=== PATIENT | female | born 1950 | race Hispanic/Latino ===

== ENCOUNTER 2024-04-22 13:07 | Inpatient (IN) | payer MEDICARE ==
[~2024-04-22] VITALS: Ht 157.5 cm; Wt 60.8 kg
[2024-04-22] MEDS ORDERED: PHARMACY COMMUNICATION MISC SCH (14:00)
[2024-04-22] MEDS ORDERED: VANCOMYCIN PROTOCOL PER PHARMACY IV SCH (14:00)
--- NOTE | 2024-04-22 14:26 | EKG ---
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
[2024-04-22] MEDS: VANCOMYCIN 1.5 GM/250 ML BAG 250 ML IV ONE (15:00)
--- NOTE | 2024-04-22 15:02 | HMCIMG ---
LEFT FOOT RADIOGRAPHS - 3 VIEWS INDICATION: Infected left great toe COMPARISON: None FINDINGS: AP, lateral, and oblique views. No fracture or subluxation identified. No evidence for periosteal reaction, cortical erosive changes, or any abnormal subperiosteal bone resorption. Midfoot alignment is well maintained. Arterial wall calcific plaque noted. Subcentimeter plantar calcaneal spur. IMPRESSION: No evidence for fracture or subluxation.
--- NOTE | 2024-04-22 15:02 | HMCIMG ---
PORTABLE CHEST RADIOGRAPH INDICATION: SOB COMPARISON: None FINDINGS: Shallow inspiration. Heart size is normal. Mild calcific plaque is present along the aortic arch long. Dense mitral annular calcific plaque. The pulmonary vascularity and olamide appear normal. No abnormal pulmonary parenchymal opacity or consolidation identified. No significant pleural effusion noted. No pneumothorax detected. IMPRESSION: Shallow inspiration. No radiographic evidence for any acute cardiopulmonary process.
--- NOTE | 2024-04-22 15:06 | HMCIMG ---
ULTRASOUND ARTERIAL DUPLEX LOWER EXTREMITY, BILATERAL INDICATION: Left leg pain TECHNIQUE: Routine grayscale, color Doppler, and power Doppler ultrasound of the bilateral lower extremity arteries were obtained. COMPARISON: None FINDINGS: Velocities in cm/sec. RIGHT: SCIENTIFIC GLASS BLOWER: 246 SFA: Prox 98, Mid 139, Distal 87 Popliteal: 42 proximally and 44 distally Anterior Tibial: 40 distally Posterior Tibial: 51 Dorsalis Pedis: 46 Triphasic flow along the right lower extremity until system except for monophasic along the right posterior tibial, distal right anterior tibial, and right dorsalis pedis artery. LEFT: SCIENTIFIC GLASS BLOWER: 114 SFA: Prox 70, Mid 12, Distal 31 Popliteal: 21 proximally and 27 distally Anterior Tibial: 32 distally Posterior Tibial: 17 Dorsalis Pedis: 38 Monophasic flow along the left lower extremity arterial system except for biphasic along the left common femoral artery. Multilevel mild atherosclerotic disease demonstrated along both lower extremities. 2.4 x 0.8 x 2.2 cm simple posterior right knee gastrocnemius semimembranosus bursal fluid collection demonstrated. IMPRESSION: Findings suggesting 50-80% stenosis involving the right common femoral artery. Monophasic flow along most of the left lower extremity arterial system except for the left common femoral artery, and monophasic flow along the right posterior tibial, anterior tibial, and dorsalis pedis arteries. Parameters as reported.
--- NOTE | 2024-04-22 15:11 | HP ---
PAT HISTORY AND PHYSICAL Date of Service: Apr 22, 2024 Time of Service: 15:11 HISTORY OF PRESENT ILLNESS: Date of service: 04/22/2024 73-year-old female with past medical history of hypertension, hyperlipidemia, diabetes mellitus type 2, history of seizures, history of PVD who presented to the hospital secondary to lower extremity pain. Patient was seen in Dr. Moore clinic today for evaluation of ingrown toenail to the left foot. Patient states she has previously seen Dr. Ashford and was given oral antibiotics. She has noted increasing pain in the left lower extremity which she describes as crampy in nature. Pain is also present in the right lower extremity pain is exacerbated with walking. Patient has had a history of PVD in the past and had undergone a previous intervention in the [place]. She is noted to be on Xarelto 2.5 mg b.i.d. at home. Per daughter patient had a fall around 5-6 days ago. She fell on her hip. Denied any head trauma, headache, neck pain. She complains of mild pain in the right hip. She has been able to ambulate after fall. The patient was sent as a direct admission from Dr. Solitario's clinic for further evaluation Labs in the ED were notable for white count of 8.7, hemoglobin was 10.2, platelet count was 203 K, sodium was 136, potassium was 4.6, creatinine was 1.5, AST is 119, ALT is 43, CK was 5834 Patient underwent chest x-ray which was noted to be negative, patient underwent a foot x-ray which was negative. Patient underwent arterial ultrasound which showed 50-80% stenosis involving the right common femoral artery. Monophasic flow was noted along most of the left lower extremity except for left common femoral and monophasic flow was noted in the right posterior tibial, anterior tibial and dorsalis pedis. REVIEW OF SYSTEMS CONSTITUTIONAL: Denies fevers, chills, or night sweats. No unintentional weight loss reported. NEUROLOGICAL: Denies headache, amaurosis fugax, motor weakness, sensory deficit, vertigo/spinning sensation, gait abnormalities, or tremors. ENT: No hearing loss, otalgia, otorrhea, rhinitis, rhinorrhea, hoarseness, or sore throat. CARDIOVASCULAR: Denies any exertional angina, dyspnea on exertion, orthopnea, paroxysmal nocturnal dyspnea, palpitations, life-threatening arrhythmias, claudication. PULMONARY: Denies any shortness of breath, cough, phlegm/sputum, hemoptysis, p leuritic chest pain. GASTROINTESTINAL: Denies any type of dysphagia to either liquids or solids. Denies nausea, vomiting, pyrosis, early satiety, abdominal pain, diarrhea, constipation, or changes in stool consistency or caliber. Denies coffee-ground emesis, hematemesis, hematochezia, or melanotic stools. GENITOURINARY: Denies frequency, urgency, nocturia, hematuria or incontinence (Storage/Irritative symptoms.) Low urinary stream, straining to void, urinary intermittency or hesitancy, splitting of the voiding stream, terminal dribbling. ENDOCRINOLOGIC: Denies polyuria, polydipsia, polyphagia or heat/cold intolerances. HEMATOLOGIC: Denies thrombophilia/previous clots, or coagulopathy/bleeding disorders. ONCOLOGIC: Denies personal history of malignancy. DERMATOLOGIC: Denies rashes or pruritus. PSYCHIATRIC: Denies any suicidal or homicidal ideation. Denies hallucinations. Musculoskeletal: Pain in the left lower extremity and right lower extremity PAST MEDICAL HISTORY: Hypertension, hyperlipidemia, diabetes mellitus type 2, history of seizures, history of PVD PAST SURGICAL HISTORY: History of peripheral intervention to the lower extremity with stent placement PAST SOCIAL HISTORY: Denied any smoking, alcohol, drug use FAMILY HISTORY: Denied any pertinent family history Coded Allergies: fish oil (Unverified Allergy, Unknown, 04/22/24) kathleen (Unverified Allergy, Unknown, 04/22/24) PHYSICAL EXAM GENERAL APPEARANCE: The patient is awake, alert, and oriented, in no acute cardiopulmonary distress. NEUROLOGICAL: Cranial nerves II-XII grossly intact. Motor is 5/5 in bilateral upper and lower extremities proximal to distal. No sensory deficits. HEENT: Face is symmetric. Pupils are equal and reactive. Extraocular movements are intact. NECK: Supple. No JVD. No thyromegaly. No submental, submandibular, pre- /postauricular, occipital or supraclavicular lymphadenopathy. CHEST: Normal chest expansion. No Telemetry. LUNGS: Absence of any rales, rhonchi or any wheezing. CARDIOVASCULAR: Regular. S1 and S2 normal. No appreciable rubs, murmurs or gallops. ABDOMEN: Soft, nontender, and nondistended. There is no rebound, voluntary guarding, or rigidity. : Deferred. No [place]. EXTREMITIES: She has a erythema noted in the big hallux of the left foot. She has possible paronychia. No drainage noted. There is mild tenderness to palpation on the lateral aspect of the nail bed. Pulses faintly palpable. Extremities warm to touch bilaterally. SKIN: No skin breakdown. Vital Sign (Last 24 Hours) 04/22/24 14:28 Temp 97.5 Pulse 61 Resp 16 B/P (MAP) 157/66 Pulse Ox 99 O2 Delivery Room Air O2 Flow Rate 0 LABS: Current Medications Medications (Trade) Dose Ordered Sig/Candace Route PRN Reason Start Time Stop Time Status Last Admin Dose Admin Cefepime HCl (MAXipime 1 GM vial) 1 gm Q8H IVPB 04/22/24 15:30 05/02/24 15:29 UNV Pharmacy Profile Note (Pharmacy Communication) 1 each ONCE MISC 04/22/24 14:00 04/22/24 14:44 DC Sodium Chloride 1,000 ml @ 75 mls/hr [id number] IV 04/22/24 15:30 05/22/24 15:29 UNV Vancomycin HCl (Vancomycin Protocol) 1 each AD IV 04/22/24 14:00 05/06/24 13:59 UNV DIAGNOSTICS / RADIOLOGY: [ ] ASSESSMENT: Left big toe cellulitis with associated paronychia Suspected left lower extremity foot ischemia with abnormal arterial ultrasound of the lower extremity POA Rhabdomyolysis POA Acute kidney injury Hypertension Hyperlipidemia Diabetes mellitus type 2 History of seizures PLAN: - patient to be admitted to medical-surgical unit with telemetry -in reference to left foot cellulitis. Patient will continue on vancomycin and cefepime. Closely monitor renal function. If worsening we will consider stopping vancomycin. The patient to be started on NS for hydration. -in reference to rhabdomyolysis. We will start patient on NS for hydration -reference to acute kidney injury. Obtain a urine sodium, urine creatinine. Obtain a renal ultrasound - in reference to PVD. We will request consultation with Cardiology. -obtain home medications which will be reconciled once available - further orders per hospitalization course. Advanced Care Planning Which of the following were discussed: Hospice care: Yes __ No _x_ Therapeutic options: Yes __ No __ Advance directives: Yes __ No __ Other discussions: Discussed with who?: patient and daughter (Patient, family or surrogates) Voluntary nature of this service was explained to the patient? Yes _x_ No __ Amount of time spent: 25 minutes STEVEN Ramirez MD, MD Apr 22, 2024 15:11
[2024-04-22] MEDS: 0.9%NACL 1000ML 1,000 ML IV SCH (15:30)
[2024-04-22 15:32] LABS: CREATININE 1.5 mg/dL (0.5-1.0); POTASSIUM 4.6 mmol/L (3.5-5.1)
[2024-04-22 15:38] LABS: BASOPHILS # (AUTO) 0.04 K/uL (0.00-0.20); BASOPHILS % (AUTO) 0.5 % (0.0-5.0); EOSINOPHILS # (AUTO) 0.06 K/uL (0.00-0.70); EOSINOPHILS % (AUTO) 0.7 % (0.0-8.0); HEMATOCRIT 31.4 % (36-48); IMMATURE GRANULOCYTE ABSOLUTE 0.03 K/uL (0-1); LYMPHOCYTES # (AUTO) 1.3 K/uL (1.0-4.8); MEAN CORPUSCULAR HEMOGLOBIN 29.8 pg (27.0-33.0); MEAN CORPUSCULAR HGB CONC 32.5 g/dL (32.0-36.0); MEAN CORPUSCULAR VOLUME 91.8 fL (79-99); MONOCYTES # (AUTO) 0.7 K/uL (0.1-1.0); MONOCYTES % (AUTO) 7.8 % (3.0-13.0); NEUTROPHILS # (AUTO) 6.6 K/uL (1.8-7.7); NEUTROPHILS % (AUTO) 75.7 % (40.0-77.0); PLATELET COUNT (AUTO) 203 K/uL (130-400); RED BLOOD CELL COUNT(AUTO) 3.42 MIL/uL (4.00-5.50); RED CELL DISTRIBUTION WIDTH 15.2 % (11.0-15.5); WHITE BLOOD COUNT (AUTO) 8.7 K/uL (4.8-10.8)
[2024-04-22 15:55] LABS: ALBUMIN 4.2 g/dL (3.5-5.0); BILIRUBIN,TOTAL 0.7 mg/dL (0.2-1.0)
--- NOTE | 2024-04-22 16:00 | HMCIMG ---
BILATERAL HIP, INCLUDING AP PELVIS, RADIOGRAPHS - 3 VIEWS INDICATION: Pain COMPARISON: None FINDINGS: Abduction view of the left and right hip and single AP view of the pelvis. No acute fracture or subluxation identified. Both femoral heads are well formed without osteochondral erosion or radiographic evidence for avascular necrosis. Extensive calcific plaque along the inflow and outflow arterial long bilaterally. IMPRESSION: No evidence for fracture or dislocation.
[2024-04-22 16:48] LABS: INR 1.03 (0.85-1.15); PROTHROMBIN TIME 10.9 SEC (9.6-11.6)
--- NOTE | 2024-04-22 17:29 | NUR ---
TRANSFER OF CARE HANDED OVER AT 171. PT MOVED FROM FAST TRACK AREA TO [facility], TO BEGIN TREATMENT.
[2024-04-22] MEDS: ceFEPime HCL 1 GM VIAL IVPB SCH (17:54)
--- NOTE | 2024-04-22 17:55 | HMCIMG ---
ULTRASOUND RENAL COMPLETE INDICATION: Assess kidney and bladder; No relevant information related to this study was provided in patient's history by the ordering service. TECHNIQUE: Routine ultrasound of the kidneys and urinary bladder with grayscale and color Doppler imaging was performed in real-time, and subsequently made available for review. COMPARISON: No prior studies available for comparison. FINDINGS: The slightly echogenic right kidney measures 9.0 x 5.1 x 3.7 cm No abnormal mass demonstrated. No evidence for hydronephrosis or shadowing stone. The slightly echogenic left kidney measures 8.5 x 4.7 x 3.4 cm. No abnormal mass demonstrated. No evidence for hydronephrosis or shadowing stone. Urinary bladder appears normal. IMPRESSION: No relevant information related to this study was provided in patient's history by the ordering service. Mild bilateral renal parenchymal abnormality can be artifactual or related to mild tubular necrosis or interstitial nephritis, but for which correlation with urine studies is recommended. No evidence for nephrolithiasis or hydronephrosis.
[2024-04-22] MEDS ORDERED: CILO50TA2 PO (18:11)
[2024-04-22] MEDS ORDERED: LEVE500T19 PO (18:11)
[2024-04-22] MEDS ORDERED: ATOR40TA71 PO (18:11)
[2024-04-22] MEDS ORDERED: RIVA10TA PO (18:11)
[2024-04-22] MEDS ORDERED: METF-444 PO (18:11)
[2024-04-22] MEDS ORDERED: LOSA50TA64 PO (18:11)
--- NOTE | 2024-04-22 18:41 | NUR ---
CALLED PHARMACY, VANCOMYCIN MEDICATION JUST ARRIVED NOW TO ED DEPT.
[2024-04-22] MEDS: VANCOMYCIN 1.5 GM/250 ML BAG 250 ML IV SCH (18:42)
[2024-04-22 19:15] LABS: CREATININE,URINE RANDOM 43.14 mg/dL (30-135)
[2024-04-22 20:00] VITALS: BP 137/49; PULSE 73; RESP 16; TEMP 97.3
[2024-04-22] MEDS: INSULIN humuLIN R 100 UNIT/ML 3ML SQ SCH (21:00)
[2024-04-22] MEDS: CILOstazol 100 MG TAB PO SCH (21:51)
[2024-04-22] MEDS: leveTIRACEtam 500 MG TABLET PO SCH (21:52)
[2024-04-22] MEDS: RIVAROXABAN 10 MG TABLET PO SCH (21:52)
[2024-04-22 22:00] VITALS: O2SAT 100
[2024-04-22] MEDS: acetaMINOPHEN 500 MG TABLET PO PRN (22:06)
[2024-04-23] VITALS (8 sets, daily range): BP systolic 96–149; BP diastolic 47–62; PULSE 60–77; RESP 16–22; TEMP 97.6–98.6; O2SAT 99–100
--- NOTE | 2024-04-23 07:56 | NUR ---
PT IN MRI
--- NOTE | 2024-04-23 08:13 | PN ---
[facility] PROGRESS NOTE Date of Service: Apr 23, 2024 Time of Service: 08:04 SUBJECTIVE: [ ] This is a 73-year-old female that was admitted on 04/22/2024 with chief complaints of lower extremity pain patient has underlying history of PVD. Patient is being followed by tub chucker Dr. Solitario evaluation of ingrown toenail of the left foot. ER workup was done imaging arterial ultrasound which showed 50-80% stenosis involving the right common femoral artery. Monophasic flow was noted along most of the left lower extremity except for left common femoral and monophasic flow was noted in the right posterior tibial, anterior tibial and dorsalis pedis. Auto Radiator Mechanic's has been consulted we will follow the recommendations. Patient is currently on Xarelto 2.5 mg. REVIEW OF SYSTEMS CONSTITUTIONAL: Denies fevers, chills, or night sweats. No unintentional weight loss reported. NEUROLOGICAL: Denies headache, amaurosis fugax, motor weakness, sensory deficit, vertigo/spinning sensation, gait abnormalities, or tremors. ENT: No hearing loss, otalgia, otorrhea, rhinitis, rhinorrhea, hoarseness, or sore throat. CARDIOVASCULAR: Denies any exertional angina, dyspnea on exertion, orthopnea, paroxysmal nocturnal dyspnea, palpitations, life-threatening arrhythmias, claudication. PULMONARY: Denies any shortness of breath, cough, phlegm/sputum, hemoptysis, pleuritic chest pain. GASTROINTESTINAL: Denies any type of dysphagia to either liquids or solids. Denies nausea, vomiting, pyrosis, early satiety, abdominal pain, diarrhea, constipation, or changes in stool consistency or caliber. Denies coffee-ground emesis, hematemesis, hematochezia, or melanotic stools. GENITOURINARY: Denies frequency, urgency, nocturia, hematuria or incontinence (Storage/Irritative symptoms.) Low urinary stream, straining to void, urinary intermittency or hesitancy, splitting of the voiding stream, terminal dribbling. ENDOCRINOLOGIC: Denies polyuria, polydipsia, polyphagia or heat/cold intolerances. HEMATOLOGIC: Denies thrombophilia/previous clots, or coagulopathy/bleeding disorders. ONCOLOGIC: Denies personal history of malignancy. DERMATOLOGIC: Denies rashes or pruritus. PSYCHIATRIC: Denies any suicidal or homicidal ideation. Denies hallucinations. Musculoskeletal: Pain in the left lower extremity and right lower extremity PHYSICAL EXAM GENERAL APPEARANCE: The patient is awake, alert, and oriented, in no acute cardiopulmonary distress. NEUROLOGICAL: Cranial nerves II-XII grossly intact. Motor is 5/5 in bilateral upper and lower extremities proximal to distal. No sensory deficits. HEENT: Face is symmetric. Pupils are equal and reactive. Extraocular movements are intact. NECK: Supple. No JVD. No thyromegaly. No submental, submandibular, pre- /postauricular, occipital or supraclavicular lymphadenopathy. CHEST: Normal chest expansion. No Telemetry. LUNGS: Absence of any rales, rhonchi or any wheezing. CARDIOVASCULAR: Regular. S1 and S2 normal. No appreciable rubs, murmurs or gallops. ABDOMEN: Soft, nontender, and nondistended. There is no rebound, voluntary guarding, or rigidity. : Deferred. No [place]. EXTREMITIES: She has a erythema noted in the big hallux of the left foot. She has possible paronychia. No drainage noted. There is mild tenderness to palpation on the lateral aspect of the nail bed. Pulses faintly palpable. Extremities warm to touch bilaterally. SKIN: No skin breakdown. Vital Signs (last 8hr) Date Time Temp Pulse Resp B/P (MAP) Pulse Ox O2 Delivery O2 Flow Rate FiO2 04/23/24 04:00 97.9 60 16 122/47 100 Nasal Cannula 2.0 LABS: Laboratory: Test 04/23/24 06:01 04/22/24 19:00 04/22/24 15:10 Range/Units Whole Blood Glucose 84 70-110 MG/DL Urine Random Creatinine 43.14 30-135 mg/dL Urine Random Sodium 62 40-220 mmol/l White Blood Count 8.7 4.8-10.8 K/uL Red Blood Count 3.42 L 4.00-5.50 MIL/uL Hemoglobin 10.2 L 12.0-16.0 g/dL Hematocrit 31.4 L 36-48 % Mean Corpuscular Volume 91.8 79-99 fL Mean Corpuscular Hemoglobin 29.8 27.0-33.0 pg Mean Corpuscular Hemoglobin Concent 32.5 32.0-36.0 g/dL Red Cell Distribution Width 15.2 11.0-15.5 % Platelet Count 203 130-400 K/uL Mean Platelet Volume 11.5 H 7.5-10.5 fL Immature Granulocyte % (Auto) 0.3 0-1 % Neutrophils (%) (Auto) 75.7 40.0-77.0 % Lymphocytes (%) (Auto) 15.0 L 21.0-51.0 % Monocytes (%) (Auto) 7.8 3.0-13.0 % Eosinophils (%) (Auto) 0.7 0.0-8.0 % Basophils (%) (Auto) 0.5 0.0-5.0 % Neutrophils # (Auto) 6.6 1.8-7.7 K/uL Lymphocytes # (Auto) 1.3 1.0-4.8 K/uL Monocytes # (Auto) 0.7 0.1-1.0 K/uL Eosinophils # (Auto) 0.06 0.00-0.70 K/uL Basophils # (Auto) 0.04 0.00-0.20 K/uL Absolute Immature Granulocyte (auto 0.03 0-1 K/uL Nucleated Red Blood Cells 0.0 0.0-0.19 % Prothrombin Time 10.9 9.6-11.6 SEC Prothromb Time International Ratio 1.03 0.85-1.15 Activated Partial Thromboplast Time 26.0 L 26.3-35.5 SEC Sodium Level 136 136-145 mmol/L Potassium Level 4.6 3.5-5.1 mmol/L Chloride Level 102 101-111 mmol/L Carbon Dioxide Level 27 21-32 mmol/L Blood Urea Nitrogen 33 H 7-18 mg/dL Creatinine 1.5 H 0.5-1.0 mg/dL Glomerular Filtration Rate Calc 36 >90 mL/min Random Glucose 151 H 70-105 mg/dL Total Calcium 9.8 8.5-10.1 mg/dL Total Bilirubin 0.7 0.2-1.0 mg/dL Aspartate Amino Transf (AST/SGOT) 119 H 10-37 U/L Alanine Aminotransferase (ALT/SGPT) 43 12-78 U/L Alkaline Phosphatase 66 50-136 U/L Total Creatine Kinase 5834 *H 21-232 U/L Total Protein 8.0 6.0-8.3 g/dL Albumin 4.2 3.5-5.0 g/dL Procalcitonin 0.06 0.05-0.5 ng/mL Current Medications Medications (Trade) Dose Ordered Sig/Candace Route PRN Reason Start Time Stop Time Status Last Admin Dose Admin Acetaminophen (TYLenol 500MG TAB) 500 mg Q6H PRN PO MILD PAIN (1-3) 04/22/24 15:30 05/22/24 15:29 04/22/24 22:06 500 MG Cefepime HCl (MAXipime 1 GM vial) 1 gm Q24H IVPB 04/22/24 15:30 05/02/24 15:29 04/22/24 17:54 1 GM Cilostazol (PLETal 100MG TAB) 50 mg BID PO 04/22/24 21:00 05/22/24 20:59 04/22/24 21:51 50 MG Insulin Human Regular (humuLIN R 100 UNIT/ML 3ML) INSULIN SLIDING SCAL... ACHS SQ 04/22/24 21:00 05/22/24 20:59 Levetiracetam (kepPRA 500 MG TABLET) 500 mg BID PO 04/22/24 21:00 05/22/24 20:59 04/22/24 21:52 500 MG Losartan Potassium (CozAAR 50 mg TAB) 50 mg DAILY PO 04/23/24 09:00 05/23/24 08:59 Pharmacy Profile Note (Pharmacy Communication) 1 each ONCE MISC 04/22/24 14:00 04/22/24 14:44 DC Rivaroxaban (Xarelto) 2.5 mg BID PO 04/22/24 21:00 05/22/24 20:59 04/22/24 21:52 2.5 MG Sodium Chloride 1,000 ml @ 125 mls/hr Q8H IV 04/22/24 15:30 05/22/24 15:29 04/23/24 05:39 125 MLS/HR Vancomycin HCl 250 ml @ 125 mls/hr ONCE IV 04/22/24 18:30 04/22/24 22:30 DC 04/22/24 18:42 125 MLS/HR Vancomycin HCl (Vancomycin 750mg) 750 mg Q24H IVPB 04/23/24 16:00 05/03/24 15:59 Vancomycin HCl (Vancomycin Protocol) 1 each AD IV 04/22/24 14:00 05/06/24 13:59 DIAGNOSTICS / RADIOLOGY: [ ] ASSESSMENT: Left big toe cellulitis with associated paronychia Suspected left lower extremity foot ischemia with abnormal arterial ultrasound of the lower extremity POA Rhabdomyolysis POA Acute kidney injury Hypertension Hyperlipidemia Diabetes mellitus type 2 History of seizures History of falls PLAN: admit: medical-surgical unit with telemetry Consultants foundry superintendant's, Infectious Disease, tub chucker, nephrology Antibiotics vancomycin IV and cefepime IV fluids NS at 125 mL/hour we will continue to monitor CK levels. Test MRI done pending results wound cultures collected we will follow-up results. Test noted renal ultrasound continue strict I&Os avoid NSAIDs renal dose medication Continues Xarelto 2.5 mg b.i.d., Pletal 50 mg b.i.d. Blood pressure control we will adjust medications accordingly continue with losartan 50 mg p.o. daily. Continue supportive measures DVT GI prophylaxis. CBC CMP magnesium CK Further orders as per response to treatment Fall precautions PT to eval and treat All questions addressed Supervising MD Dr. Holley ATTESTATION BY PHYSICIAN I have seen and examined the patient. I reviewed the documentation, medical decision making, and treatment plan as noted by the mid-level provider above. I agree with the findings and plan of care. Sinan Holley MD, ELIZABETH NP Apr 23, 2024 08:13 SINAN HOLLEY MD Apr 24, 2024 16:13
[2024-04-23 09:13] LABS: BASOPHILS # (AUTO) 0.07 K/uL (0.00-0.20); BASOPHILS % (AUTO) 1.1 % (0.0-5.0); EOSINOPHILS # (AUTO) 0.45 K/uL (0.00-0.70); EOSINOPHILS % (AUTO) 7.1 % (0.0-8.0); HEMATOCRIT 31.1 % (36-48); IMMATURE GRANULOCYTE ABSOLUTE 0.02 K/uL (0-1); LYMPHOCYTES # (AUTO) 1.6 K/uL (1.0-4.8); LYMPHOCYTES % (AUTO) 24.8 % (21.0-51.0); MEAN CORPUSCULAR HEMOGLOBIN 29.3 pg (27.0-33.0); MEAN CORPUSCULAR HGB CONC 31.2 g/dL (32.0-36.0); MONOCYTES # (AUTO) 0.5 K/uL (0.1-1.0); MONOCYTES % (AUTO) 7.3 % (3.0-13.0); NEUTROPHILS # (AUTO) 3.8 K/uL (1.8-7.7); NEUTROPHILS % (AUTO) 59.4 % (40.0-77.0); PLATELET COUNT (AUTO) 173 K/uL (130-400); RED BLOOD CELL COUNT(AUTO) 3.31 MIL/uL (4.00-5.50); RED CELL DISTRIBUTION WIDTH 14.9 % (11.0-15.5); WHITE BLOOD COUNT (AUTO) 6.3 K/uL (4.8-10.8)
[2024-04-23 09:22] LABS: CREATININE 1.1 mg/dL (0.5-1.0); POTASSIUM 4.4 mmol/L (3.5-5.1)
[2024-04-23 09:44] LABS: ALBUMIN 3.5 g/dL (3.5-5.0); BILIRUBIN,TOTAL 1.2 mg/dL (0.2-1.0); MAGNESIUM 1.9 mg/dL (1.80-2.40); TOTAL PROTEIN, SERUM 6.8 g/dL (6.0-8.3)
[2024-04-23] MEDS: LoSARTan 50 MG TABLET PO SCH (10:16)
--- NOTE | 2024-04-23 10:30 | HMCIMG ---
MR FOOT LEFT WO HISTORY: Great toe wound COMPARISON: None TECHNIQUE: MRI of the left foot was performed utilizing multiple pulse sequences in axial, coronal and sagittal planes. Patient was not given contrast through intravenous route. FINDINGS: Increased signal intensity is seen involving the first distal phalanx consistent with osteomyelitis. Adjacent cellulitis changes are seen. Degenerative changes are seen. There is no acute displaced fracture or dislocation. IMPRESSION: 1. Findings are suspicious for osteomyelitis of the first distal phalanx and a proper clinical setting.
--- NOTE | 2024-04-23 13:12 | CONS ---
REFERRING PHYSICIAN: Dr. Snyder. REASON FOR CONSULTATION: Renal failure. HISTORY OF PRESENT ILLNESS: The patient is a 73-year-old female with a history of diabetes mellitus and hypertension. The patient has a history of known vascular disease. The patient had been seen as an outpatient by Podiatry for an infected ingrown toenail. The patient was given some antibiotics. She presents to the hospital with significant pain to the leg. Laboratory values revealed an elevated BUN and creatinine as well as an elevated CPK. The patient apparently had a fall at home. She had been on statins for a prolonged period of time, and she is being seen in consultation for all the above. PAST MEDICAL HISTORY: Diabetes mellitus, hypertension, hypercholesterolemia, and vascular disease. PAST SURGICAL HISTORY: Lower extremity intervention. SOCIAL HISTORY: No alcohol or tobacco use. She lives independently. FAMILY HISTORY: There is no family history of renal dysfunction. ALLERGIES: There are no allergies. MEDICATIONS: All noted. REVIEW OF SYSTEMS: GENERAL: Complained of the pain. HEENT: No change in vision. No change in hearing. CARDIOVASCULAR: There is no current chest pain or palpitations. PULMONARY: She denies any shortness of breath. GASTROINTESTINAL: She is tolerating diet. MUSCULOSKELETAL: As described above. NEUROLOGIC: No seizures or focal deficits. PSYCHIATRIC: No history of hallucinations or psychosis. ENDOCRINE: Diabetes mellitus. No history of thyroid disease. HEME: History of anemia. No history of malignancy. PHYSICAL EXAMINATION: VITAL SIGNS: Blood pressure 125/62, pulse in the 60s. GENERAL: Chronically ill female, elderly, lying in bed on medical floor. HEENT: Head is atraumatic. Pupils equal, roving to light. Oropharynx is without exudate. Nares clear. NECK: There is no JVP. There is no thyromegaly, no mass. CARDIOVASCULAR: Regular. There is no S3, S4 gallop. LUNGS: Coarse with equal thoracic movement. ABDOMEN: Soft, nondistended, nontender. EXTREMITIES: No clubbing, no cyanosis. The wounds are all noted. NEUROLOGIC: She is awake. She is alert. She is oriented. SKIN: Reveals no rash or nodules. LABORATORY DATA: Hemoglobin 9.7, hematocrit 31. Sodium 137, potassium is 4, BUN 22, creatinine is 1. CPK is 3800. Bilirubin is 1.2. IMPRESSION: * Acute renal failure. * Rhabdomyolysis. * Cellulitis. * Diabetes mellitus. * Hypertension. PLAN: The patient with significant rhabdomyolysis. The patient had been on a statin at home. The patient has been started on IV hydration. We will send off a urinalysis for completeness, and we will continue to follow the chemistries closely. The patient does have significant anemia, will check iron levels for completeness. The patient is also to be seen by Podiatry, and we will continue to follow closely. The patient is with multiple questions, all of which were answered. TID: [id number] RECEIPT: [id number]
--- NOTE | 2024-04-23 14:30 | NUR ---
REPORT CALLED TO LAURI TO TRANSFER TO 331
--- NOTE | 2024-04-23 14:35 | NUR ---
ANGELA DENISE CALLED REPORT TO THE FLOOR AND PT IS NOW EN-ROUTE
[2024-04-23] MEDS ORDERED: VANCOMYCIN 750MG VIAL IVPB SCH (16:00)
--- NOTE | 2024-04-23 16:34 | CONS ---
INFECTIOUS DISEASE CONSULTATION DATE OF SERVICE: 04/23/2024. REQUESTING PHYSICIAN: Dr. Carl Snyder. REASON FOR CONSULTATION: Left great toe osteomyelitis. HISTORY OF PRESENT ILLNESS: A 73-year-old female with history of hypertension, diabetes mellitus, dyslipidemia, peripheral vascular disease, who presented to the hospital with left great toe pain and discoloration. The patient claims she had an ingrown toenail, which was debrided by a washing machine operator. The patient was not doing well and started to see Dr. Solitario for second opinion, however, was sent to the hospital for further evaluation. No history of trauma or fall today, but apparently fell few weeks ago. X-ray of the hip was done and came back negative. The patient also found with elevated CPK. MRI of the left foot that has been done showed osteomyelitis of the left great toe. Arterial Doppler shows occlusion of the right common femoral artery and abnormal monophasic flow in the left lower extremity. The patient has been started on vancomycin and cefepime. PAST MEDICAL HISTORY: * Hypertension. * Dyslipidemia. * Diabetes mellitus. * Seizure disorder. * Peripheral vascular disease. PAST SURGICAL HISTORY: Angiogram and stenting of the lower extremities. ALLERGIES: No known drug allergy. CURRENT MEDICATIONS: Reviewed, include: * Vancomycin. * Cefepime. * Keppra. * Losartan. * Cilostazol. SOCIAL HISTORY: Denies alcohol, tobacco, or illicit drug use. FAMILY HISTORY: Positive for diabetes mellitus. REVIEW OF SYSTEMS: CONSTITUTIONAL: No fever, no chills, no weight loss or night sweats. EYES: No eye pain, no photophobia or diplopia. HENT: No sore throat, no rhinorrhea or earache. NECK: No neck pain or neck swelling. RESPIRATORY: No cough, no hemoptysis or pleuritic pain. CARDIOVASCULAR: No chest pain, no palpitation or orthopnea. GASTROINTESTINAL: Denied nausea, vomiting, or abdominal pain. GENITOURINARY: No dysuria, urgency, or urinary frequency. CENTRAL NERVOUS SYSTEM: No headache, dyspnea, or slurred speech. PSYCHIATRY: No depression. No suicidal ideation. EXTREMITIES: Positive for left great toe pain, swelling, and ulcer. PHYSICAL EXAMINATION: GENERAL: Elderly female, awake. VITAL SIGNS: Temperature 97.5, pulse 60, respiratory rate 20, BP 149/59. EYES: No icterus. Pupils equal and reactive. HENT: No oral thrush seen. Moist oral mucosa. NECK: Supple. No JVD or thyromegaly. LUNGS: Good air entry. No rales, no rhonchi. CARDIOVASCULAR: S1, S2 regular. No murmur heard. ABDOMEN: Full, soft, nontender. Bowel sound is present. CENTRAL NERVOUS SYSTEM: Awake, alert, oriented x 3. No focal deficits. SKIN: No rashes, no itchiness. LYMPHATIC: No peripheral lymphadenopathy. BACK: No deformity, no pressure ulcer. EXTREMITIES: Wound with drainage involving the left great toenail bed. It is markedly tender and there is ischemic discoloration. LABORATORY DATA: CPK 3110. Sodium 137, potassium 4.4. BUN 21, creatinine 1.1. WBC 6.3, hemoglobin 9.7, platelets 172. RADIOLOGY: MRI of the left foot shows osteomyelitis involving distal phalanx of the great toe. Arterial Doppler shows stenosis involving the right common femoral artery. ASSESSMENT: A 73-year-old female presenting with left great toe pain. CURRENT PROBLEMS: Include: * Left great toe osteomyelitis. * Diabetic foot ulcer. * Peripheral vascular disease. * Rhabdomyolysis. * Anemia. * Hypertension. * Diabetes mellitus. PLAN: * Continue IV fluid. * Continue vancomycin. * Continue cefepime. * Continue wound care. * Continue pain management. * Follow up cultures. * Continue antiemetic. * Continue antiplatelet. * The patient will be followed up closely. Thank you for allowing me to participate in the care of this patient. TID: [id number] RECEIPT: [id number]
--- NOTE | 2024-04-23 18:08 | NUR ---
DCP - INITIAL ASSESSMENT Patient lives alone. She has no home services. DME: cane, rollator, shower chair, BPM, glucometer. Patient needs help with ADLs but drives. Family assists as needed. PCP is Dr. Tank Luz. Pharmacy is [facility] in [place]. Patient voiced no safety concerns regarding returning home and states she has no difficulty with housing or buying food. DCP is home. Addendum: 04/23/24 at 1848 by VERONICA PHILLIPS Amended: Links added.
[2024-04-23] MEDS: VANCOMYCIN 750MG VIAL IVPB SCH (19:54)
[2024-04-23] MEDS: RIVAROXABAN 2.5 MG TABLET PO SCH (21:12)
[2024-04-24] VITALS (7 sets, daily range): BP systolic 92–140; BP diastolic 42–66; PULSE 66–81; RESP 17–20; TEMP 97.9–98.4; O2SAT 98
--- NOTE | 2024-04-24 09:38 | PN ---
[facility] PROGRESS NOTE Date of Service: Apr 24, 2024 Time of Service: 09:36 SUBJECTIVE: [ ] This is a 73-year-old female that was admitted on 04/22/2024 with chief complaints of lower extremity pain patient has underlying history of PVD. Patient is being followed by phys therapist Dr. Solitario evaluation of ingrown toenail of the left foot. ER workup was done imaging arterial ultrasound which showed 50-80% stenosis involving the right common femoral artery. Monophasic flow was noted along most of the left lower extremity except for left common femoral and monophasic flow was noted in the right posterior tibial, anterior tibial and dorsalis pedis. Photogravure Press Operator's has been consulted we will follow the recommendations. Patient is currently on Xarelto 2.5 mg. 04/24/2024 Patient is seen and examined patient appears in no acute distress fully awake alert oriented x3. MRI suspicious for osteo we have ID on board on broad- spectrum antibiotic. Patient denies diarrhea has some discomfort to her great toe. Aggressive offloading. Nonweightbearing REVIEW OF SYSTEMS CONSTITUTIONAL: Denies fevers, chills, or night sweats. No unintentional weight loss reported. NEUROLOGICAL: Denies headache, amaurosis fugax, motor weakness, sensory deficit, vertigo/spinning sensation, gait abnormalities, or tremors. ENT: No hearing loss, otalgia, otorrhea, rhinitis, rhinorrhea, hoarseness, or sore throat. CARDIOVASCULAR: Denies any exertional angina, dyspnea on exertion, orthopnea, paroxysmal nocturnal dyspnea, palpitations, life-threatening arrhythmias, claudication. PULMONARY: Denies any shortness of breath, cough, phlegm/sputum, hemoptysis, pleuritic chest pain. GASTROINTESTINAL: Denies any type of dysphagia to either liquids or solids. Denies nausea, vomiting, pyrosis, early satiety, abdominal pain, diarrhea, constipation, or changes in stool consistency or caliber. Denies coffee-ground emesis, hematemesis, hematochezia, or melanotic stools. GENITOURINARY: Denies frequency, urgency, nocturia, hematuria or incontinence (Storage/Irritative symptoms.) Low urinary stream, straining to void, urinary intermittency or hesitancy, splitting of the voiding stream, terminal dribbling. ENDOCRINOLOGIC: Denies polyuria, polydipsia, polyphagia or heat/cold intolerances. HEMATOLOGIC: Denies thrombophilia/previous clots, or coagulopathy/bleeding disorders. ONCOLOGIC: Denies personal history of malignancy. DERMATOLOGIC: Denies rashes or pruritus. PSYCHIATRIC: Denies any suicidal or homicidal ideation. Denies hallucinations. Musculoskeletal: Pain in the left lower extremity and right lower extremity PHYSICAL EXAM GENERAL APPEARANCE: The patient is awake, alert, and oriented, in no acute cardiopulmonary distress. NEUROLOGICAL: Cranial nerves II-XII grossly intact. Motor is 5/5 in bilateral upper and lower extremities proximal to distal. No sensory deficits. HEENT: Face is symmetric. Pupils are equal and reactive. Extraocular movements are intact. NECK: Supple. No JVD. No thyromegaly. No submental, submandibular, pre- /postauricular, occipital or supraclavicular lymphadenopathy. CHEST: Normal chest expansion. No Telemetry. LUNGS: Absence of any rales, rhonchi or any wheezing. CARDIOVASCULAR: Regular. S1 and S2 normal. No appreciable rubs, murmurs or gallops. ABDOMEN: Soft, nontender, and nondistended. There is no rebound, voluntary guarding, or rigidity. : Deferred. No [place]. EXTREMITIES: She has a erythema noted in the big hallux of the left foot. She has possible paronychia. No drainage noted. There is mild tenderness to palpation on the lateral aspect of the nail bed. Pulses faintly palpable. Extremities warm to touch bilaterally. SKIN: No skin breakdown. Vital Signs (last 8hr) Date Time Temp Pulse Resp B/P (MAP) Pulse Ox O2 Delivery O2 Flow Rate FiO2 04/24/24 08:02 97.9 66 17 105/51 93 Nasal Cannula 2.0 04/24/24 04:00 98.2 68 20 94/45 98 Nasal Cannula 2.0 LABS: Laboratory: Test 04/24/24 05:20 04/24/24 04:55 04/23/24 08:40 04/22/24 19:00 Range/Units Whole Blood Glucose 82 # 70-110 MG/DL Iron Level 35 L 50-170 mcg/dL Total Iron Binding Capacity 218 L 250-450 mcg/dL Percent Iron Saturation 16.0 L 22-44 % White Blood Count 6.3 # 4.8-10.8 K/uL Red Blood Count 3.31 L 4.00-5.50 MIL/uL Hemoglobin 9.7 L 12.0-16.0 g/dL Hematocrit 31.1 L 36-48 % Mean Corpuscular Volume 94.0 79-99 fL Mean Corpuscular Hemoglobin 29.3 27.0-33.0 pg Mean Corpuscular Hemoglobin Concent 31.2 L 32.0-36.0 g/dL Red Cell Distribution Width 14.9 11.0-15.5 % Platelet Count 173 130-400 K/uL Mean Platelet Volume 11.5 H 7.5-10.5 fL Immature Granulocyte % (Auto) 0.3 0-1 % Neutrophils (%) (Auto) 59.4 40.0-77.0 % Lymphocytes (%) (Auto) 24.8 21.0-51.0 % Monocytes (%) (Auto) 7.3 3.0-13.0 % Eosinophils (%) (Auto) 7.1 0.0-8.0 % Basophils (%) (Auto) 1.1 0.0-5.0 % Neutrophils # (Auto) 3.8 1.8-7.7 K/uL Lymphocytes # (Auto) 1.6 1.0-4.8 K/uL Monocytes # (Auto) 0.5 0.1-1.0 K/uL Eosinophils # (Auto) 0.45 0.00-0.70 K/uL Basophils # (Auto) 0.07 0.00-0.20 K/uL Absolute Immature Granulocyte (auto 0.02 0-1 K/uL Nucleated Red Blood Cells 0.0 0.0-0.19 % Sodium Level 137 136-145 mmol/L Potassium Level 4.4 3.5-5.1 mmol/L Chloride Level 107 101-111 mmol/L Carbon Dioxide Level 26 21-32 mmol/L Blood Urea Nitrogen 22 H 7-18 mg/dL Creatinine 1.1 H 0.5-1.0 mg/dL Glomerular Filtration Rate Calc 53 >90 mL/min Random Glucose 95 70-105 mg/dL Total Calcium 9.1 8.5-10.1 mg/dL Magnesium Level 1.90 1.80-2.40 mg/dL Total Bilirubin 1.2 #H 0.2-1.0 mg/dL Aspartate Amino Transf (AST/SGOT) 110 H 10-37 U/L Alanine Aminotransferase (ALT/SGPT) 43 12-78 U/L Alkaline Phosphatase 56 50-136 U/L Total Creatine Kinase 3810 #*H 21-232 U/L Total Protein 6.8 6.0-8.3 g/dL Albumin 3.5 3.5-5.0 g/dL Urine Random Creatinine 43.14 30-135 mg/dL Urine Random Sodium 62 40-220 mmol/l Test 04/22/24 15:10 Range/Units Prothrombin Time 10.9 9.6-11.6 SEC Prothromb Time International Ratio 1.03 0.85-1.15 Activated Partial Thromboplast Time 26.0 L 26.3-35.5 SEC Procalcitonin 0.06 0.05-0.5 ng/mL Current Medications Medications (Trade) Dose Ordered Sig/Candace Route PRN Reason Start Time Stop Time Status Last Admin Dose Admin Acetaminophen (TYLenol 500MG TAB) 500 mg Q6H PRN PO MILD PAIN (1-3) 04/22/24 15:30 05/22/24 15:29 04/22/24 22:06 500 MG Cefepime HCl (MAXipime 1 GM vial) 1 gm Q24H IVPB 04/22/24 15:30 05/02/24 15:29 04/23/24 15:42 1 GM Cilostazol (PLETal 100MG TAB) 50 mg BID PO 04/22/24 21:00 05/22/24 20:59 04/23/24 21:06 50 MG Insulin Human Regular (humuLIN R 100 UNIT/ML 3ML) INSULIN SLIDING SCAL... ACHS SQ 04/22/24 21:00 05/22/24 20:59 04/23/24 19:55 3 UNIT Levetiracetam (kepPRA 500 MG TABLET) 500 mg BID PO 04/22/24 21:00 05/22/24 20:59 04/23/24 21:06 500 MG Losartan Potassium (CozAAR 50 mg TAB) 50 mg DAILY PO 04/23/24 09:00 05/23/24 08:59 04/23/24 10:16 50 MG Pharmacy Profile Note (Pharmacy Communication) 1 each ONCE MISC 04/22/24 14:00 04/22/24 14:44 DC Rivaroxaban (Xarelto) 2.5 mg BID PO 04/22/24 21:00 04/23/24 15:31 DC 04/23/24 10:16 2.5 MG Rivaroxaban (Xarelto) 2.5 mg BID PO 04/23/24 21:00 05/22/24 20:59 04/23/24 21:12 2.5 MG Sodium Chloride 1,000 ml @ 125 mls/hr Q8H IV 04/22/24 15:30 05/22/24 15:29 04/24/24 06:08 125 MLS/HR Vancomycin HCl 250 ml @ 125 mls/hr ONCE IV 04/22/24 18:30 04/22/24 22:30 DC 04/22/24 18:42 125 MLS/HR Vancomycin HCl (Vancomycin 750mg) 750 mg Q24H IVPB 04/23/24 16:00 04/23/24 19:45 DC Vancomycin HCl (Vancomycin 750mg) 750 mg Q24H IVPB 04/23/24 20:00 05/03/24 19:59 04/23/24 19:54 750 MG Vancomycin HCl (Vancomycin Protocol) 1 each AD IV 04/22/24 14:00 05/06/24 13:59 DIAGNOSTICS / RADIOLOGY: [ ] ASSESSMENT: Left big toe cellulitis with associated paronychia Suspected left lower extremity foot ischemia with abnormal arterial ultrasound of the lower extremity POA Suspicious for osteomyelitis 1st distal phalanx POA Rhabdomyolysis POA Acute kidney injury prerenal POA Hypertension Hyperlipidemia Diabetes mellitus type 2 History of seizures History of falls PLAN: admit: medical-surgical unit with telemetry Consultants environmental solutions engineer's, Infectious Disease, phys therapist, nephrology Antibiotics vancomycin IV and cefepime IV fluids NS at 125 mL/hour we will continue to monitor CK levels. trending down Test MRI noted Continues Xarelto 2.5 mg b.i.d., Pletal 50 mg b.i.d. Blood pressure control we will adjust medications accordingly continue with losartan 50 mg p.o. daily. Continue supportive measures DVT GI prophylaxis. CBC CMP magnesium CK in am Further orders as per response to treatment Fall precautions PT to eval and treat All questions addressed Supervising MD Dr. Holley ATTESTATION BY PHYSICIAN I have seen and examined the patient. I reviewed the documentation, medical decision making, and treatment plan as noted by the mid-level provider above. I agree with the findings and plan of care. Sinan Holley MD, ELIZABETH NP Apr 24, 2024 09:38 SINAN HOLLEY MD Apr 24, 2024 16:14
[2024-04-24] MEDS ORDERED: PoTASSium chloRIDE 20MEQ/100ML 100 ML IV PRN (10:00)
[2024-04-24 10:03] LABS: BASOPHILS # (AUTO) 0.04 K/uL (0.00-0.20); BASOPHILS % (AUTO) 0.6 % (0.0-5.0); EOSINOPHILS # (AUTO) 0.56 K/uL (0.00-0.70); EOSINOPHILS % (AUTO) 8.3 % (0.0-8.0); HEMATOCRIT 26.9 % (36-48); IMMATURE GRANULOCYTE ABSOLUTE 0.02 K/uL (0-1); LYMPHOCYTES # (AUTO) 1.4 K/uL (1.0-4.8); MEAN CORPUSCULAR HEMOGLOBIN 30.1 pg (27.0-33.0); MEAN CORPUSCULAR HGB CONC 32.7 g/dL (32.0-36.0); MEAN CORPUSCULAR VOLUME 92.1 fL (79-99); MONOCYTES # (AUTO) 0.5 K/uL (0.1-1.0); MONOCYTES % (AUTO) 6.8 % (3.0-13.0); NEUTROPHILS # (AUTO) 4.3 K/uL (1.8-7.7); PLATELET COUNT (AUTO) 149 K/uL (130-400); RED BLOOD CELL COUNT(AUTO) 2.92 MIL/uL (4.00-5.50); RED CELL DISTRIBUTION WIDTH 14.9 % (11.0-15.5); WHITE BLOOD COUNT (AUTO) 6.8 K/uL (4.8-10.8)
[2024-04-24 10:20] LABS: CREATININE 0.9 mg/dL (0.5-1.0); POTASSIUM 3.8 mmol/L (3.5-5.1)
[2024-04-24 10:26] LABS: BILIRUBIN,TOTAL 0.7 mg/dL (0.2-1.0); MAGNESIUM 1.7 mg/dL (1.80-2.40); TOTAL PROTEIN, SERUM 6.1 g/dL (6.0-8.3)
[2024-04-24] MEDS: PoTASSium chloRIDE 20MEQ ER 20 MEQ ERTAB PO PRN (10:55)
--- NOTE | 2024-04-24 11:41 | CONS ---
Cardiac Consult Note CONSULT NOTE DATE OF SERVICE: Apr 22, 2024 at 13:07 REFERRING PROVIDER: YAIMA PUENTE MD REASON FOR CONSULT: Peripheral arterial disease critical limb ischemia HPI: 73-year-old female who is not known to our clinic in [facility] who had had a workup for peripheral arterial disease and poor wound healing of her 1st digit of her left toe back in November in which he saw a doctor may adolfo in [place] and eventually a doctor Eric who is a vascular surgeon who performed a peripheral angiogram on patient and was told that she needed surgery likely femoral popliteal bypass however that was never completed that she states she did not quite understand what studies were necessary and procedures needed to be performed after the angiogram so she did not follow up with the vascular surgeon again. Wound healing has been compromised and there appears to be osteomyelitis involved. Arterial Dopplers revealed what was seems to be an occluded left SFA and at this time we have been asked to further evaluate patient. She currently denies any myocardial infarction stroke TIA or CVA in the past. She denies smoking or alcohol use. It should be noted that patient came in with evidence of rhabdomyolysis and she is on a statin which has been held. Nephrology has been consulted. Studies are pending. Patient came in also with a low-grade in the anemia and hemoglobin at this time is at 8.8 grams/deciliter. ROS: No fever, headache, chest pain, abdominal pain, nausea, vomiting, or diarrhea. PMHX: Diabetes mellitus Diabetic angiopathy Hypertension Dyslipidemia PSHX: Noncontributory FH: Noncontributory SOCIAL: Nonsmoker nondrinker lives alone PHYSICAL EXAMINATION: GENERAL: No acute distress. HEENT: Normocephalic, atraumatic. CARDIAC: Positive S1 and S2. No murmurs. LUNGS: Clear to auscultation bilaterally. ABDOMEN: Bowel sounds present, soft, nontender. EXTREMITIES: No edema bilaterally. Patient has evidence of 2+ right popliteal pulse with a poorly palpable left popliteal pulse and pedal pulses bilaterally NEUROLOGIC: Cranial nerves 2-12 grossly intact. PSYCHIATRIC: Calm. ASSESSMENT: Critical limb ischemia Severe diabetic angiopathy with it appears to be an occluded left SFA Diabetes mellitus Anemia of chronic disease PLAN: At this time I would like to schedule patient for abdominal aortography with bilateral lower extremity runoffs if renal function remains stable. Risks and goals of procedure have been discussed with the patient however in obtaining patient's history to appears that she has had this study done approximately 6 months ago and she was told at that time by vascular surgery that she would benefit from surgical revascularization. I still think study needs to be performed and we will discuss this case further with the patient in regards to her options available to her and whether she would like to see vascular surgery once more in [place] pending results of tomorrow study. Orders will be placed however if patient's anemia worsens likely we will have to cancel that study until for fear of issues related to contrast induced nephropathy in this diabetic female. We will continue to follow and I will we will make further re commendations pending studies. Orders will be placed for abdominal aortography for tomorrow from a right common femoral artery approach. Risks and goals of procedure have been discussed with the patient and she is willing to proceed. Vital Signs 04/23/24 04/23/24 04/23/24 04/23/24 12:00 14:12 14:15 15:44 Temp 98.1 98.6 Pulse 74 Resp 16 22 18 B/P (MAP) 96/53 98/49 120/60 Pulse Ox 96 95 100 97 O2 Delivery Nasal Cannula Nasal Cannula Nasal Cannula* Nasal Cannula O2 Flow Rate 2.0 2.0 2 2.0 FiO2 28 04/23/24 04/23/24 04/24/24 04/24/24 20:00 20:00 00:00 04:00 Temp 98.1 98.4 98.2 Pulse 77 72 68 Resp 20 20 20 B/P (MAP) 109/61 92/42 94/45 Pulse Ox 99 99 99 98 O2 Delivery Nasal Cannula Nasal Cannula* Nasal Cannula Nasal Cannula O2 Flow Rate 2.0 2 2.0 2.0 FiO2 28 04/24/24 04/24/24 04/24/24 08:00 08:02 11:28 Temp 97.9 98.2 Pulse 66 70 Resp 17 17 B/P (MAP) 105/51 126/53 Pulse Ox 98 93 100 O2 Delivery Nasal Cannula* Nasal Cannula Nasal Cannula O2 Flow Rate 2 2.0 3.0 FiO2 28 Laboratory Tests Test 04/23/24 11:58 04/23/24 15:58 04/23/24 19:19 04/24/24 04:55 Whole Blood Glucose 112 MG/DL (70-110) 151 MG/DL (70-110) 215 MG/DL (70-110) Iron Level 35 mcg/dL (50-170) Total Iron Binding Capacity 218 mcg/dL (250-450) Percent Iron Saturation 16.0 % (22-44) Test 04/24/24 05:20 04/24/24 09:50 04/24/24 09:52 04/24/24 10:39 Whole Blood Glucose 82 MG/DL (70-110) 114 MG/DL (70-110) White Blood Count 6.8 K/uL (4.8-10.8) Red Blood Count 2.92 MIL/uL (4.00-5.50) Hemoglobin 8.8 g/dL (12.0-16.0) Hematocrit 26.9 % (36-48) Mean Corpuscular Volume 92.1 fL (79-99) Mean Corpuscular Hemoglobin 30.1 pg (27.0-33.0) Mean Corpuscular Hemoglobin Concent 32.7 g/dL (32.0-36.0) Red Cell Distribution Width 14.9 % (11.0-15.5) Platelet Count 149 K/uL (130-400) Mean Platelet Volume 11.0 fL (7.5-10.5) Immature Granulocyte % (Auto) 0.3 % (0-1) Neutrophils (%) (Auto) 64.0 % (40.0-77.0) Lymphocytes (%) (Auto) 20.0 % (21.0-51.0) Monocytes (%) (Auto) 6.8 % (3.0-13.0) Eosinophils (%) (Auto) 8.3 % (0.0-8.0) Basophils (%) (Auto) 0.6 % (0.0-5.0) Neutrophils # (Auto) 4.3 K/uL (1.8-7.7) Lymphocytes # (Auto) 1.4 K/uL (1.0-4.8) Monocytes # (Auto) 0.5 K/uL (0.1-1.0) Eosinophils # (Auto) 0.56 K/uL (0.00-0.70) Basophils # (Auto) 0.04 K/uL (0.00-0.20) Absolute Immature Granulocyte (auto 0.02 K/uL (0-1) Nucleated Red Blood Cells 0.0 % (0.0-0.19) Sodium Level 139 mmol/L (136-145) Potassium Level 3.8 mmol/L (3.5-5.1) Chloride Level 109 mmol/L (101-111) Carbon Dioxide Level 24 mmol/L (21-32) Blood Urea Nitrogen 20 mg/dL (7-18) Creatinine 0.9 mg/dL (0.5-1.0) Glomerular Filtration Rate Calc 67 mL/min (>90) Random Glucose 131 mg/dL (70-105) Total Calcium 8.4 mg/dL (8.5-10.1) Magnesium Level 1.70 mg/dL (1.80-2.40) Total Bilirubin 0.7 mg/dL (0.2-1.0) Aspartate Amino Transf (AST/SGOT) 71 U/L (10-37) Alanine Aminotransferase (ALT/SGPT) 37 U/L (12-78) Alkaline Phosphatase 55 U/L (50-136) Total Protein 6.1 g/dL (6.0-8.3) Albumin 3.0 g/dL (3.5-5.0) Current Medications Medications Dose Ordered Sig/Candace Route PRN Reason Start Time Stop Time Status Last Admin Vancomycin HCl 1 each AD IV 04/22/24 14:00 05/06/24 13:59 Pharmacy Profile Note 1 each ONCE MISC 04/22/24 14:00 04/22/24 14:44 DC Vancomycin HCl 250 ml @ 125 mls/hr ONCE ONCE IV 04/22/24 15:00 04/22/24 16:59 DC Cefepime HCl 1 gm Q24H IVPB 04/22/24 15:30 05/02/24 15:29 04/23/24 15:42 Sodium Chloride 1,000 ml @ 125 mls/hr Q8H IV 04/22/24 15:30 05/22/24 15:29 04/24/24 06:08 Vancomycin HCl 750 mg Q24H IVPB 04/23/24 16:00 04/23/24 19:45 DC Levetiracetam 500 mg BID PO 04/22/24 21:00 05/22/24 20:59 04/24/24 09:53 Losartan Potassium 50 mg DAILY PO 04/23/24 09:00 05/23/24 08:59 04/24/24 09:53 Rivaroxaban 2.5 mg BID PO 04/22/24 21:00 04/23/24 15:31 DC 04/23/24 10:16 Cilostazol 50 mg BID PO 04/22/24 21:00 05/22/24 20:59 04/24/24 09:53 Insulin Human Regular INSULIN SLIDING SCAL... ACHS SQ 04/22/24 21:00 05/22/24 20:59 04/23/24 19:55 Vancomycin HCl 250 ml @ 125 mls/hr ONCE IV 04/22/24 18:30 04/22/24 22:30 DC 04/22/24 18:42 Rivaroxaban 2.5 mg BID PO 04/23/24 21:00 05/22/24 20:59 04/24/24 09:53 Vancomycin HCl 750 mg Q24H IVPB 04/23/24 20:00 05/03/24 19:59 04/23/24 19:54 Iron Sucrose 300 mg/Sodium Chloride 250 ml @ 83 mls/hr ONCE ONCE IV 04/24/24 21:00 04/25/24 00:00 Reported Medications Cilostazol (Cilostazol) 50 Mg Tablet, 50 MG PO BID, TAB 04/22/24 Metformin HCl (Metformin HCl) 500 Mg Tablet, 500 MG PO DAILY, TAB 04/22/24 Atorvastatin Calcium (Atorvastatin Calcium) 40 Mg Tablet, 40 MG PO HS, TAB 04/22/24 Losartan Potassium (Losartan Potassium) 50 Mg Tablet, 50 MG PO DAILY, TAB 04/22/24 Levetiracetam (Levetiracetam) 500 Mg Tablet, 500 MG PO BID, TAB 04/22/24 Rivaroxaban (Xarelto) 10 Mg Tablet, 2.5 MG PO BID, TAB 04/22/24 YAIMA PUENTE MD Apr 24, 2024 11:41
[2024-04-24] MEDS ORDERED: COMPOUND IV REFRIGERATED 1 EACH IVSOLN MISC PRN (12:00)
--- NOTE | 2024-04-24 12:21 | PN ---
SUBJECTIVE: A 73-year-old female with a history of diabetes mellitus and hypertension. The patient initially presented to the hospital and found to have acute renal failure as well as rhabdomyolysis. The patient was started on IV hydration and renal function has improved. The patient with a history of cellulitis to the left foot and remains on the antibiotics. The patient also with significant vascular disease and workup is ongoing. The patient is being seen as a followup visit for all of the above. REVIEW OF SYSTEMS: GENERAL: She is feeling somewhat improved. HEENT: No change in vision. No change in hearing. CARDIOVASCULAR: There is no current chest pain or palpitations. PULMONARY: There is no shortness of breath. GASTROINTESTINAL: The patient is tolerating a diet. MUSCULOSKELETAL: Complains of weakness. PHYSICAL EXAMINATION:. VITAL SIGNS: Blood pressure 105/51, pulse 60s. GENERAL: Chronically ill female lying in bed on medical floor. HEENT: Head is atraumatic. Pupils equal, roving to light. Oropharynx is without exudate. Nares clear. NECK: There is no JVP. There is no thyromegaly, no mass. CARDIOVASCULAR: Regular. There is no S3, S4 gallop. LUNGS: Coarse with equal thoracic movement. ABDOMEN: Soft, nondistended, nontender. EXTREMITIES: Reveal no clubbing, no cyanosis. NEUROLOGIC: She is awake. She is alert. LABORATORY DATA: Sodium 139, potassium 3.8, BUN 20, creatinine 0.9, magnesium is 1.7, hemoglobin 8.8, hematocrit 26. Iron levels are noted. IMPRESSION: 1. Acute renal failure. 2. Rhabdomyolysis. 3. Cellulitis. 4. Vascular disease. 5. Anemia. PLAN: The patient's renal function is much improved. The patient will continue with the IV hydration for now. CPK is pending. The patient does have significant anemia. She will be started on IV iron and we will continue to follow closely. She is being seen by podiatry. TID: [id number] RECEIPT: [id number]
--- NOTE | 2024-04-24 18:12 | CONS ---
HISTORY OF PRESENT ILLNESS: The patient is a very pleasant 73-year-old diabetic Latin-Israeli who was admitted to the hospital yesterday with a left big toe cellulitis, suspected osteomyelitis and associated paronychia. The patient states she had an ingrown toenail. Surgery performed to the left great toe [address] Ashford in [place] and the wound is not healed. She states she sees Dr. Williamson in [place]. Had a circulation procedure to the left lower extremity and told that her circulation was fine; however, the surgical site to the left great toe continued to remain nonhealing. She has history of hypertension, diabetes, hyperlipidemia, history of seizures, history of peripheral vascular disease. She states she saw Dr. Williamson a year ago for her vascular procedure. The patient states she had a fall 5 or 6 days ago and injured her hip and is concerned of mild pain to the right hip. The patient has had foot x-rays that were negative. Arterial Doppler studies suggesting monophasic waveforms along most of the left lower extremity except for the left common femoral artery. She has been followed for the problems lists that includes hypertension, hyperlipidemia, diabetes, history of seizure, history of peripheral vascular disease. X-rays of her left foot were negative for any osseous changes to the left first toe. She has an MRI that has been performed and the results are as of yet still pending. The patient is currently receiving vancomycin and cefepime. White count 8.7, H and H 10.2 and 31.4, platelets 203, neutrophils 75.7. BUN and creatinine level 33 and 1.5. Creatinine kinase 5834. REVIEW OF SYSTEMS: CONSTITUTIONAL: No chills, no fever, no night sweats, no nausea, vomiting, no diarrhea. HEENT: No problems with eyes, ears, nose or throat. CARDIOVASCULAR: Having no current chest pain. PULMONARY: Denies any shortness of breath. GASTROINTESTINAL: No dysphagia. GENITOURINARY: Elevated renal function. GASTROINTESTINAL: No dysphagia. ENDOCRINE: Diabetes. PSYCHIATRIC: Denied any depression. MUSCULOSKELETAL: She has bunions and hammertoe deformities. INTEGUMENT: She has an ulcer to the lateral border of her left hallux where she has had a previous ingrown toenail surgery. Problems lists including left big toe cellulitis, associated paronychia, MRI pending, possible osteomyelitis, left lower extremity ischemia, abnormal arterial Doppler studies, rhabdomyolysis, acute kidney injury, hypertension, hyperlipidemia, diabetes type 2, history of seizure disorder. PHYSICAL EXAMINATION: Today, cannot palpate her pedal pulses. sensation is intact. She has thickened, but not elongated toenails to her feet bilaterally. Reflexes diminished. Muscle strength decreased. Ingrown toenail surgical site with a fibrotic base to the lateral border of the left hallux. Now there is edema. There is erythema and there is associated cellulitis. No evidence of consolidated abscess nor ascending cellulitis, localized paronychia. SURGICAL HISTORY: Peripheral intervention to the left lower extremity with stent placement a year ago by Dr. Williamson in [place]. SOCIAL HISTORY: Does not smoke, drink or use any drugs. ALLERGIES: FISH OIL AND MANGOS. ASSESSMENT: Nonhealing ingrown toenail surgical site to the left hallux x 5 months, peripheral vascular disease, suspected osteomyelitis MRI pending. PLAN: We will continue with local wound care, use Anasept gel dressings to the ulcer site. We will continue with the IV vancomycin and the IV cefepime. We will continue to follow the patient closely while in-house. Awaiting evaluation of her circulation status by the Cardiology Service. TID: [id number] RECEIPT: [id number]
--- NOTE | 2024-04-24 21:40 | PN ---
INFECTIOUS DISEASE FOLLOWUP NOTE DATE OF SERVICE: 04/24/2024 SUBJECTIVE: The patient is seen and examined at bedside today. No fever or chills. No nausea, no vomiting or abdominal pain. Some pain to the left foot. MRI of the left foot shows osteomyelitis to the left great toe. ____ antibiotic. No bleeding tendency. No rashes or itchiness. No diarrhea. No abdominal pain. PHYSICAL EXAMINATION: VITAL SIGNS: Temperature 98.7. EYES: No icterus. Pupils are equal and reactive. HENT: No oral thrush seen. Moist oral mucosa. NECK: Supple, no JVD or thyromegaly. LUNGS: Good air entry. No rales, no rhonchi. CARDIOVASCULAR: S1, S2 regular. No murmur heard. ABDOMEN: Full, soft. Bowel sound is present. CENTRAL NERVOUS SYSTEM: Awake, alert and oriented x 3. No focal deficits. SKIN: No rashes. LYMPHATIC: No peripheral lymphadenopathy. BACK: No deformity, no pressure ulcer. EXTREMITIES: Ulcer with drainage involving the left great toe ____. ASSESSMENT: A 73-year-old female with multiple problems include: * Left great toe osteomyelitis. * Diabetic ulcer. * Peripheral vascular disease. * Rhabdomyolysis. * Anemia. * Hypertension. * Diabetes mellitus. PLAN: * Continue wound care. * Continue cefepime. * Continue vancomycin. * Continue antiplatelet. * Continue GI prophylaxis. * Continue nutritional support. * Monitor electrolytes. * The patient will be followed up closely. TID: [id number] RECEIPT: [id number]
--- NOTE | 2024-04-24 23:02 | PN ---
SUBJECTIVE: The patient is a very pleasant 73-year-old diabetic, Latin-Armenian female, followed up for a left great toe nonhealing ingrown toenail. Surgery was performed approximately 5 months ago. She is currently afebrile at 98.4, blood pressure 140/66, pulse 81. She has a white count that is 6.8, H and H 8.8 and 26.9. She has had arterial Doppler studies on the left, which have shown monophasic waveforms with the exception of the left common femoral where it is biphasic. The patient has had an MRI of the left foot and the findings is suspicion for osteomyelitis of the first distal phalanx. The patient is currently receiving IV vancomycin and cefepime. She has wound cultures that are pending. The patient has a BUN and a creatinine level of 20 and 0.9. Cardiology has been consulted on this patient. Cardiology service is evaluating the patient for the possibility of arteriogram study. Plan possibly for tomorrow pending stabilization of her hemoglobin. The patient is being followed by Dr. Chao, Infectious Disease and the patient is currently receiving IV vancomycin and cefepime. REVIEW OF SYSTEMS: CONSTITUTIONAL: Today, no chills, no fevers, no night sweats, no nausea, vomiting, no diarrhea. HEENT: No problems with eyes, ears, nose or throat. CARDIOVASCULAR: She has peripheral vascular disease with monophasic waveforms throughout her lower extremities, being evaluated by the Cardiology Service for possible arteriogram procedure and evaluation of the circulation status of the left. PULMONARY: Denies any shortness of breath. ENDOCRINE: Diabetes. GENITOURINARY: Elevated renal function. GASTROINTESTINAL: No dysphagia. PSYCHIATRIC: Denied any depression. MUSCULOSKELETAL: She has bunions and hammertoe deformities. INTEGUMENT: She has an ulcer to the lateral border of left hallux nail. She has had previous ingrown toenail surgery. ASSESSMENT: At this point is nonhealing ingrown toenail surgical site to the left, left lower extremity peripheral vascular disease, left distal phalanx osteomyelitis. PLAN: We will continue with local wound care with Anasept gel dressings to the ulcer site. We will continue with IV vancomycin and IV cefepime. We will await the results of the patient's wound cultures. Cardiology is evaluating the patient for the possibility of a revascularization procedure to that left lower extremity. We will continue to follow the patient closely while in-house. JANESSA: 04/24/2024 09:33 PM TID: [id number] RECEIPT: [id number]
[2024-04-24] MEDS: IRON sUCROse COMPLEX 300 MG in 0.9% NACL 250ML 250 ML IV ONE (23:57)
[2024-04-25] VITALS (17 sets, daily range): BP systolic 122–164; BP diastolic 55–76; PULSE 65–96; RESP 16–20; TEMP 98–100; O2SAT 94–100
[2024-04-25 05:34] LABS: BASOPHILS # (AUTO) 0.06 K/uL (0.00-0.20); BASOPHILS % (AUTO) 0.8 % (0.0-5.0); EOSINOPHILS # (AUTO) 0.71 K/uL (0.00-0.70); EOSINOPHILS % (AUTO) 9.5 % (0.0-8.0); IMMATURE GRANULOCYTE ABSOLUTE 0.02 K/uL (0-1); LYMPHOCYTES # (AUTO) 1.4 K/uL (1.0-4.8); MEAN CORPUSCULAR HEMOGLOBIN 29.5 pg (27.0-33.0); MEAN CORPUSCULAR HGB CONC 32.1 g/dL (32.0-36.0); MEAN CORPUSCULAR VOLUME 91.8 fL (79-99); MONOCYTES # (AUTO) 0.6 K/uL (0.1-1.0); MONOCYTES % (AUTO) 8.1 % (3.0-13.0); NEUTROPHILS # (AUTO) 4.6 K/uL (1.8-7.7); NEUTROPHILS % (AUTO) 62.3 % (40.0-77.0); PLATELET COUNT (AUTO) 152 K/uL (130-400); RED BLOOD CELL COUNT(AUTO) 3.05 MIL/uL (4.00-5.50); RED CELL DISTRIBUTION WIDTH 14.7 % (11.0-15.5); WHITE BLOOD COUNT (AUTO) 7.4 K/uL (4.8-10.8)
[2024-04-25 06:00] LABS: BILIRUBIN,TOTAL 0.6 mg/dL (0.2-1.0); CREATININE 0.9 mg/dL (0.5-1.0); MAGNESIUM 1.5 mg/dL (1.80-2.40); POTASSIUM 4.1 mmol/L (3.5-5.1); TOTAL PROTEIN, SERUM 6.2 g/dL (6.0-8.3)
[2024-04-25] MEDS: MAGNESIUM 2GM PREMIX 50ML 50 ML IV PRN (06:47)
--- NOTE | 2024-04-25 06:50 | PN ---
SUBJECTIVE: The patient is a 73-year-old diabetic, Latin-Cook Islander female, afebrile at 98.1, pulse 67, respirations 20, blood pressure 138/62. White count 7.4, H and H 9 and 28, platelets 152. The patient is currently receiving IV vancomycin and cefepime. Wound cultures are pending. Results of the MRI great toe, left osteomyelitis distal phalanx first toe. Arterial Doppler studies on the left, monophasic distal to the common femoral artery on that left side. The patient is tentatively scheduled to [facility] today for evaluation of her circulation status on that left side. REVIEW OF SYSTEMS: CONSTITUTIONAL: Pain to the left great toe. No constitutional symptoms. HEENT: No problems with eyes, ears, nose, or throat. CARDIOVASCULAR: Peripheral vascular disease, monophasic waveforms distal to the common femoral on the left, pending possible arteriogram study to evaluate the patient's circulation status on that left side today in the [facility]. PULMONARY: No shortness of breath. ENDOCRINE: Diabetes. PSYCHIATRIC: Denied any depression. MUSCULOSKELETAL: Bunions and hammertoe deformities. INTEGUMENT: Ulcer to the lateral border of the left hallux. She has had a previous ingrown toenail surgery in 11/2023. ASSESSMENT: Nonhealing ingrown toenail surgical site to left great toe with osteomyelitis and peripheral vascular disease. PLAN: Continue with local wound care with Anasept Gel. We will continue with IV vancomycin and cefepime. We will await the results of her wound cultures. Cardiology is evaluating the patient for possible revascularization procedure to the left lower extremity. We will continue to follow the patient closely while in-house. TID: [id number] RECEIPT: [id number]
--- NOTE | 2024-04-25 08:42 | PN ---
[facility] PROGRESS NOTE Date of Service: Apr 25, 2024 Time of Service: 08:30 SUBJECTIVE: [ ] This is a 73-year-old female that was admitted on 04/22/2024 with chief complaints of lower extremity pain patient has underlying history of PVD. Patient is being followed by requirements engineer Dr. Solitario evaluation of ingrown toenail of the left foot. ER workup was done imaging arterial ultrasound which showed 50-80% stenosis involving the right common femoral artery. Monophasic flow was noted along most of the left lower extremity except for left common femoral and monophasic flow was noted in the right posterior tibial, anterior tibial and dorsalis pedis. Paraoptometric's has been consulted we will follow the recommendations. Patient is currently on Xarelto 2.5 mg. 04/24/2024 Patient is seen and examined patient appears in no acute distress fully awake alert oriented x3. MRI suspicious for osteo we have ID on board on broad- spectrum antibiotic. Patient denies diarrhea has some discomfort to her great toe. Aggressive offloading. Nonweightbearing 04/25/24 patient is scheduled abdominal aortography with bilateral runoffs per Dr Fam we will continue to hydrate patient's CK trending down. Magnesium replace this morning. Patient is fully awake alert oriented x3. Case management for discharge planning most likely we will need LTAC. We will wait for ID recommendations. REVIEW OF SYSTEMS CONSTITUTIONAL: Denies fevers, chills, or night sweats. No unintentional weight loss reported. NEUROLOGICAL: Denies headache, amaurosis fugax, motor weakness, sensory deficit, vertigo/spinning sensation, gait abnormalities, or tremors. ENT: No hearing loss, otalgia, otorrhea, rhinitis, rhinorrhea, hoarseness, or sore throat. CARDIOVASCULAR: Denies any exertional angina, dyspnea on exertion, orthopnea, paroxysmal nocturnal dyspnea, palpitations, life-threatening arrhythmias, claudication. PULMONARY: Denies any shortness of breath, cough, phlegm/sputum, hemoptysis, pleuritic chest pain. GASTROINTESTINAL: Denies any type of dysphagia to either liquids or solids. Denies nausea, vomiting, pyrosis, early satiety, abdominal pain, diarrhea, constipation, or changes in stool consistency or caliber. Denies coffee-ground emesis, hematemesis, hematochezia, or melanotic stools. GENITOURINARY: Denies frequency, urgency, nocturia, hematuria or incontinence (Storage/Irritative symptoms.) Low urinary stream, straining to void, urinary intermittency or hesitancy, splitting of the voiding stream, terminal dribbling. ENDOCRINOLOGIC: Denies polyuria, polydipsia, polyphagia or heat/cold intolerances. HEMATOLOGIC: Denies thrombophilia/previous clots, or coagulopathy/bleeding disorders. ONCOLOGIC: Denies personal history of malignancy. DERMATOLOGIC: Denies rashes or pruritus. PSYCHIATRIC: Denies any suicidal or homicidal ideation. Denies hallucinations. Musculoskeletal: Pain in the left lower extremity and right lower extremity PHYSICAL EXAM GENERAL APPEARANCE: The patient is awake, alert, and oriented, in no acute cardiopulmonary distress. NEUROLOGICAL: Cranial nerves II-XII grossly intact. Motor is 5/5 in bilateral upper and lower extremities proximal to distal. No sensory deficits. HEENT: Face is symmetric. Pupils are equal and reactive. Extraocular movements are intact. NECK: Supple. No JVD. No thyromegaly. No submental, submandibular, pre- /postauricular, occipital or supraclavicular lymphadenopathy. CHEST: Normal chest expansion. No Telemetry. LUNGS: Absence of any rales, rhonchi or any wheezing. CARDIOVASCULAR: Regular. S1 and S2 normal. No appreciable rubs, murmurs or gallops. ABDOMEN: Soft, nontender, and nondistended. There is no rebound, voluntary guarding, or rigidity. : Deferred. No [place]. EXTREMITIES: She has a erythema noted in the big hallux of the left foot. She has possible paronychia. No drainage noted. There is mild tenderness to palpation on the lateral aspect of the nail bed. Pulses faintly palpable. Extremities warm to touch bilaterally. SKIN: No skin breakdown. Vital Signs (last 8hr) Date Time Temp Pulse Resp B/P (MAP) Pulse Ox O2 Delivery O2 Flow Rate FiO2 04/25/24 04:00 98.1 67 20 138/62 98 Nasal Cannula 2.0 04/25/24 01:51 99 Nasal Cannula* 2 28 LABS: Laboratory: Test 04/25/24 05:28 04/25/24 05:27 04/24/24 04:55 Range/Units Whole Blood Glucose 99 70-110 MG/DL White Blood Count 7.4 4.8-10.8 K/uL Red Blood Count 3.05 L 4.00-5.50 MIL/uL Hemoglobin 9.0 L 12.0-16.0 g/dL Hematocrit 28.0 L 36-48 % Mean Corpuscular Volume 91.8 79-99 fL Mean Corpuscular Hemoglobin 29.5 27.0-33.0 pg Mean Corpuscular Hemoglobin Concent 32.1 32.0-36.0 g/dL Red Cell Distribution Width 14.7 11.0-15.5 % Platelet Count 152 130-400 K/uL Mean Platelet Volume 10.8 H 7.5-10.5 fL Immature Granulocyte % (Auto) 0.3 0-1 % Neutrophils (%) (Auto) 62.3 40.0-77.0 % Lymphocytes (%) (Auto) 19.0 L 21.0-51.0 % Monocytes (%) (Auto) 8.1 3.0-13.0 % Eosinophils (%) (Auto) 9.5 H 0.0-8.0 % Basophils (%) (Auto) 0.8 0.0-5.0 % Neutrophils # (Auto) 4.6 1.8-7.7 K/uL Lymphocytes # (Auto) 1.4 1.0-4.8 K/uL Monocytes # (Auto) 0.6 0.1-1.0 K/uL Eosinophils # (Auto) 0.71 H 0.00-0.70 K/uL Basophils # (Auto) 0.06 0.00-0.20 K/uL Absolute Immature Granulocyte (auto 0.02 0-1 K/uL Nucleated Red Blood Cells 0.0 0.0-0.19 % Sodium Level 139 136-145 mmol/L Potassium Level 4.1 3.5-5.1 mmol/L Chloride Level 110 101-111 mmol/L Carbon Dioxide Level 24 21-32 mmol/L Blood Urea Nitrogen 16 7-18 mg/dL Creatinine 0.9 0.5-1.0 mg/dL Glomerular Filtration Rate Calc 67 >90 mL/min Random Glucose 102 70-105 mg/dL Total Calcium 8.5 8.5-10.1 mg/dL Magnesium Level 1.50 L 1.80-2.40 mg/dL Total Bilirubin 0.6 0.2-1.0 mg/dL Aspartate Amino Transf (AST/SGOT) 50 H 10-37 U/L Alanine Aminotransferase (ALT/SGPT) 33 12-78 U/L Alkaline Phosphatase 57 50-136 U/L Total Creatine Kinase 985 #*H 21-232 U/L Total Protein 6.2 6.0-8.3 g/dL Albumin 3.0 L 3.5-5.0 g/dL Iron Level 35 L 50-170 mcg/dL Total Iron Binding Capacity 218 L 250-450 mcg/dL Percent Iron Saturation 16.0 L 22-44 % Current Medications Medications (Trade) Dose Ordered Sig/Candace Route PRN Reason Start Time Stop Time Status Last Admin Dose Admin Acetaminophen (TYLenol 500MG TAB) 500 mg Q6H PRN PO MILD PAIN (1-3) 04/22/24 15:30 05/22/24 15:29 04/24/24 10:07 500 MG Cefepime HCl (MAXipime 1 GM vial) 1 gm Q24H IVPB 04/22/24 15:30 05/02/24 15:29 04/24/24 16:23 1 GM Cilostazol (PLETal 100MG TAB) 50 mg BID PO 04/22/24 21:00 05/22/24 20:59 04/24/24 20:52 50 MG Insulin Human Regular (humuLIN R 100 UNIT/ML 3ML) INSULIN SLIDING SCAL... ACHS SQ 04/22/24 21:00 05/22/24 20:59 04/23/24 19:55 3 UNIT Levetiracetam (kepPRA 500 MG TABLET) 500 mg BID PO 04/22/24 21:00 05/22/24 20:59 04/24/24 20:52 500 MG Losartan Potassium (CozAAR 50 mg TAB) 50 mg DAILY PO 04/23/24 09:00 05/23/24 08:59 04/24/24 09:53 50 MG Magnesium Sulfate 50 ml @ 0 mls/hr PROTOCOL PRN IV low mag level 04/24/24 10:00 05/24/24 09:59 04/25/24 06:47 25 MLS/HR Pharmacy Profile Note (Pharmacy Communication) 1 each ONCE MISC 04/22/24 14:00 04/22/24 14:44 DC Potassium Chloride 100 ml @ 100 mls/hr AD PRN IV POTASSIUM PROTOCOL 04/24/24 10:00 05/24/24 09:59 Potassium Chloride (K-Dur/Klor-Con 20meq) 20 meq AD PRN PO POTASSIUM PROTOCOL 04/24/24 10:00 05/24/24 09:59 04/24/24 13:20 20 MEQ Potassium Chloride (KCl 10% Elixir 20meq/15ml) 20 meq AD PRN PO POTASSIUM PROTOCOL 04/24/24 10:00 05/24/24 09:59 Rivaroxaban (Xarelto) 2.5 mg BID PO 04/22/24 21:00 04/23/24 15:31 DC 04/23/24 10:16 2.5 MG Rivaroxaban (Xarelto) 2.5 mg BID PO 04/23/24 21:00 05/22/24 20:59 04/24/24 20:52 2.5 MG Sodium Chloride 1,000 ml @ 125 mls/hr Q8H IV 04/22/24 15:30 05/22/24 15:29 04/25/24 04:04 125 MLS/HR Vancomycin HCl 250 ml @ 125 mls/hr ONCE IV 04/22/24 18:30 04/22/24 22:30 DC 04/22/24 18:42 125 MLS/HR Vancomycin HCl (Vancomycin 750mg) 750 mg Q24H IVPB 04/23/24 16:00 04/23/24 19:45 DC Vancomycin HCl (Vancomycin 750mg) 750 mg Q24H IVPB 04/23/24 20:00 05/03/24 19:59 04/24/24 20:51 750 MG Vancomycin HCl (Vancomycin Protocol) 1 each AD IV 04/22/24 14:00 05/06/24 13:59 DIAGNOSTICS / RADIOLOGY: [ ] ASSESSMENT: Left big toe cellulitis with associated paronychia POA PAD POA Suspected left lower extremity foot ischemia with abnormal arterial ultrasound of the lower extremity POA Suspicious for osteomyelitis 1st distal phalanx POA Rhabdomyolysis POA Acute kidney injury prerenal POA Iron deficiency POA Hypertension Hyperlipidemia Diabetes mellitus type 2 History of seizures History of falls PLAN: admit: medical-surgical unit with telemetry Consultants parent aide's, Infectious Disease, requirements engineer, nephrology Antibiotics vancomycin IV and cefepime IV fluids NS at 125 mL/hour we will continue to monitor CK levels. trending down Procedure : scheduled abdominal aortography with bilateral runoffs per Dr Fam Continues Xarelto 2.5 mg b.i.d., Pletal 50 mg b.i.d. Blood pressure control we will adjust medications accordingly continue with losartan 50 mg p.o. daily. Monitor H&H trend transfuse to keep hemoglobin 7.0 patient received one dose of Venofer Oral supplements folic acid1 mg vitamin B12 1000 mcg daily CBC CMP magnesium CK in am Supportive measures DVT GI prophylaxis Pain Management Tylenol No. 3 as directed Further orders as per response to treatment Fall precautions PT to eval and treat case management: possible LTAC: ordered Tele for 3 nights All questions addressed Supervising MD Dr. Pantoja ATTESTATION BY PHYSICIAN I have seen and examined the patient. I reviewed the documentation, medical decision making, and treatment plan as noted by the mid-level provider above. I agree with the findings and plan of care. ALENA PANTOJA MD, ELIZABETH NP Apr 25, 2024 08:42
[2024-04-25] MEDS: FOLic ACID 1 MG TABLET PO ONE (09:49)
[2024-04-25] MEDS: CYANOCOBALAMIN (VITAMIN B-12) 1,000 MCG TABLET PO SCH (09:50)
[2024-04-25] MEDS: FAMOTIDINE 20MG TAB PO SCH (09:50)
[2024-04-25] MEDS ORDERED: HEParin-NS 1,000 UNIT/500 ML 1,000 ML IV ONE (10:29)
[2024-04-25] MEDS ORDERED: NITROGLYCERIN 50MG VIAL ONE (10:29)
[2024-04-25] MEDS ORDERED: IODIXANOL 320 MG/ML 100 ML VIAL ONE (10:29)
[2024-04-25] MEDS ORDERED: HEParin 10,000 UNIT/10ML (1,000 UNIT/ML) VIAL ONE (10:29)
[2024-04-25] MEDS ORDERED: LIDOCAINE HCL 400MG/20ML VIAL ONE (10:29)
[2024-04-25] MEDS ORDERED: FENTanyl CITRate PF 50 MCG/1 ML 2ML VIAL ONE (10:49)
[2024-04-25] MEDS ORDERED: MIDAZOLAM HCL 1 MG/ML 2ML VIAL ONE (10:49)
[2024-04-25] MEDS ORDERED: LAbetaLOL 20MG SYG IV ONE (11:28)
--- NOTE | 2024-04-25 11:41 | PRN ---
Procedure Note INDICATION FOR PROCEDURE: [] Nonhealing ulcer left 1st digit PROCEDURE: [] Conscious sedation Right common femoral arterial sheath placement Abdominal aortogram with bilateral lower extremity runoffs Mynx device for closure of arteriotomy site on right common femoral artery DATE OF PROCEDURE: April 25, 2024 RUBBER TUBING SPLICER: Allen Fam MD, F.A.C.C. PROCEDURE NOTE: [] Patient brought to catheterization suite and prepped and draped in sterile fashion. An IV was started if not already in place and both groins were exposed for arterial access. 2% lidocaine was used for local anesthesia and then a micro puncture kit was used to gain access and once free flow blood was seen modified Seldinger technique was utilized to place a 6 Turkish sheath into the right common femoral artery. Next an Omni flush catheter was then placed into the abdominal aorta pressure measurements were obtained and then an aortogram was performed. Next the Glidewire was used to direct the Omni flush catheter to the left common femoral artery. Next contrast injections were performed to define the anatomy of the left lower extremity. Next Omni flush catheter was removed and then sheath shots were performed of the right lower extremity with runoff. At end of case Mynx device was used for closure of arteriotomy site no complications occurred. FINDINGS: [] The abdominal aorta is calcified with no evidence of aneurysm. Renal arteries are noted to be patent single on each side Bilateral common iliac arteries are patent with a 20-30% stenosis noted of the left common iliac artery Bilateral external and internal iliac arteries are noted to be patent. Bilateral common femoral artery descending artery patent and calcified Bilateral profunda femoris arteries are noted to be patent. There is a 100% occlusion of the proximal left SFA extending to the adductor canal with reconstitution noted of the left popliteal artery with single-vessel runoff noted to the left foot via a patent left anterior tibial artery On the right side there are sequential calcified stenosis of the right SFA in the mid and distal segment of 70-85%. Right popliteal artery was noted to be patent. There is single-vessel runoff noted to the right foot via a patent right posterior tibial artery. 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 Reyes in [place] that she needed left femoral popliteal bypass but she never followed up with the physician. Discuss in-house consultation with the patient. ALLEN FAM MD Apr 25, 2024 11:41
--- NOTE | 2024-04-25 11:43 | PN ---
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 Patient has known occlusion of left SFA which appears to be chronic with reconstitution noted via significant profunda femoris collaterals. She was single-vessel runoff noted to the left foot. REVIEW OF SYSTEMS: No fever, headache, chest pain, abdominal pain, nausea, vomiting, or diarrhea. VITAL SIGNS Vital Signs Date Time Temp Pulse Resp B/P (MAP) Pulse Ox O2 Delivery O2 Flow Rate FiO2 04/25/24 08:00 98.4 72 18 163/60 100 Nasal Cannula 2.0 04/25/24 01:51 28 Laboratory Tests 04/25/24 05:27 LABS/MEDS Laboratory Tests Test 04/24/24 16:05 04/24/24 19:31 04/25/24 05:27 04/25/24 05:28 Whole Blood Glucose 146 MG/DL (70-110) H 167 MG/DL (70-110) H 99 MG/DL (70-110) White Blood Count 7.4 K/uL (4.8-10.8) Red Blood Count 3.05 MIL/uL (4.00-5.50) L Hemoglobin 9.0 g/dL (12.0-16.0) L Hematocrit 28.0 % (36-48) L Mean Corpuscular Volume 91.8 fL (79-99) Mean Corpuscular Hemoglobin 29.5 pg (27.0-33.0) Mean Corpuscular Hemoglobin Concent 32.1 g/dL (32.0-36.0) Red Cell Distribution Width 14.7 % (11.0-15.5) Platelet Count 152 K/uL (130-400) Mean Platelet Volume 10.8 fL (7.5-10.5) H Immature Granulocyte % (Auto) 0.3 % (0-1) Neutrophils (%) (Auto) 62.3 % (40.0-77.0) Lymphocytes (%) (Auto) 19.0 % (21.0-51.0) L Monocytes (%) (Auto) 8.1 % (3.0-13.0) Eosinophils (%) (Auto) 9.5 % (0.0-8.0) H Basophils (%) (Auto) 0.8 % (0.0-5.0) Neutrophils # (Auto) 4.6 K/uL (1.8-7.7) Lymphocytes # (Auto) 1.4 K/uL (1.0-4.8) Monocytes # (Auto) 0.6 K/uL (0.1-1.0) Eosinophils # (Auto) 0.71 K/uL (0.00-0.70) H Basophils # (Auto) 0.06 K/uL (0.00-0.20) Absolute Immature Granulocyte (auto 0.02 K/uL (0-1) Nucleated Red Blood Cells 0.0 % (0.0-0.19) Sodium Level 139 mmol/L (136-145) Potassium Level 4.1 mmol/L (3.5-5.1) Chloride Level 110 mmol/L (101-111) Carbon Dioxide Level 24 mmol/L (21-32) Blood Urea Nitrogen 16 mg/dL (7-18) Creatinine 0.9 mg/dL (0.5-1.0) Glomerular Filtration Rate Calc 67 mL/min (>90) Random Glucose 102 mg/dL (70-105) Total Calcium 8.5 mg/dL (8.5-10.1) Magnesium Level 1.50 mg/dL (1.80-2.40) L Total Bilirubin 0.6 mg/dL (0.2-1.0) Aspartate Amino Transf (AST/SGOT) 50 U/L (10-37) H Alanine Aminotransferase (ALT/SGPT) 33 U/L (12-78) Alkaline Phosphatase 57 U/L (50-136) Total Creatine Kinase 985 U/L (21-232) #*H Total Protein 6.2 g/dL (6.0-8.3) Albumin 3.0 g/dL (3.5-5.0) L Current Medications Vancomycin HCl 1 each AD IV; Start 04/22/24 at 14:00; Stop 05/06/24 at 13:59 Pharmacy Profile Note 1 each ONCE MISC; Start 04/22/24 at 14:00; Stop 04/22/24 at 14:44; Status DC Vancomycin HCl 250 ml @ 125 mls/hr ONCE ONCE IV; Start 04/22/24 at 15:00; Stop 04/22/24 at 16:59; Status DC Cefepime HCl 1 gm Q24H IVPB Last administered on 04/24/24at 16:23; Start 04/22/24 at 15:30; Stop 05/02/24 at 15:29 Sodium Chloride 1,000 ml @ 125 mls/hr Q8H IV Last administered on 04/25/24at 04:04; Start 04/22/24 at 15:30; Stop 04/25/24 at 11:39; Status DC Acetaminophen 500 mg Q6H PRN PO Last administered on 04/24/24at 10:07; Start 04/22/24 at 15:30; Stop 05/22/24 at 15:29 Vancomycin HCl 750 mg Q24H IVPB; Start 04/23/24 at 16:00; Stop 04/23/24 at 19:45; Status DC Levetiracetam 500 mg BID PO Last administered on 04/25/24at 09:49; Start 04/22/24 at 21:00; Stop 05/22/24 at 20:59 Losartan Potassium 50 mg DAILY PO Last administered on 04/25/24at 09:50; Start 04/23/24 at 09:00; Stop 05/23/24 at 08:59 Rivaroxaban 2.5 mg BID PO Last administered on 04/23/24at 10:16; Start 04/22/24 at 21:00; Stop 04/23/24 at 15:31; Status DC Cilostazol 50 mg BID PO Last administered on 04/25/24at 09:50; Start 04/22/24 at 21:00; Stop 05/22/24 at 20:59 Insulin Human Regular INSULIN SLIDING SCAL... ACHS SQ Last administered on 04/23/24at 19:55; Start 04/22/24 at 21:00; Stop 05/22/24 at 20:59 Vancomycin HCl 250 ml @ 125 mls/hr ONCE IV Last administered on 04/22/24at 18:42; Start 04/22/24 at 18:30; Stop 04/22/24 at 22:30; Status DC Rivaroxaban 2.5 mg BID PO Last administered on 04/24/24at 20:52; Start 04/23/24 at 21:00; Stop 05/22/24 at 20:59 Vancomycin HCl 750 mg Q24H IVPB Last administered on 04/24/24at 20:51; Start 04/23/24 at 20:00; Stop 05/03/24 at 19:59 Potassium Chloride 100 ml @ 100 mls/hr AD PRN IV; Start 04/24/24 at 10:00; Stop 05/24/24 at 09:59 Potassium Chloride 20 meq AD PRN PO; Start 04/24/24 at 10:00; Stop 05/24/24 at 09:59 Potassium Chloride 20 meq AD PRN PO Last administered on 04/24/24at 13:20; Start 04/24/24 at 10:00; Stop 05/24/24 at 09:59 Magnesium Sulfate 50 ml @ 0 mls/hr PROTOCOL PRN IV Last administered on 04/25/24at 06:47; Start 04/24/24 at 10:00; Stop 05/24/24 at 09:59 Iron Sucrose 300 mg/Sodium Chloride 250 ml @ 83 mls/hr ONCE ONCE IV Last administered on 04/24/24at 23:57; Start 04/24/24 at 21:00; Stop 04/25/24 at 00:00; Status DC Famotidine 20 mg DAILY PO Last administered on 04/25/24at 09:50; Start 04/25/24 at 09:00; Stop 05/25/24 at 08:59 Acetaminophen/ Codeine Phosphate 1 tab Q6H PRN PO; Start 04/25/24 at 09:00; Stop 05/25/24 at 08:59 Folic Acid 1 mg ONCE ONCE PO Last administered on 04/25/24at 09:49; Start 04/25/24 at 09:00; Stop 04/25/24 at 09:01; Status DC Vitamin B Complex 1,000 mcg DAILY PO Last administered on 04/25/24at 09:50; Start 04/25/24 at 09:00; Stop 05/25/24 at 08:59 Lidocaine HCl 20 ml STK-MED ONCE .ROUTE; Start 04/25/24 at 10:29; Stop 04/25/24 at 10:29; Status DC Iodixanol 100 ml STK-MED ONCE .ROUTE; Start 04/25/24 at 10:29; Stop 04/25/24 at 10:29; Status DC Heparin Sodium (Porcine) 10,000 unit STK-MED ONCE .ROUTE; Start 04/25/24 at 10:29; Stop 04/25/24 at 10:29; Status DC Heparin Sodium/ Sodium Chloride 1,500 ml @ As Directed STK-MED ONCE IV; Start 04/25/24 at 10:29; Stop 04/25/24 at 10:29; Status DC Nitroglycerin 50 mg STK-MED ONCE .ROUTE; Start 04/25/24 at 10:29; Stop 04/25/24 at 10:30; Status DC Fentanyl Citrate 100 mcg STK-MED ONCE .ROUTE; Start 04/25/24 at 10:49; Stop 04/25/24 at 10:49; Status DC Midazolam HCl 2 mg STK-MED ONCE .ROUTE; Start 04/25/24 at 10:49; Stop 04/25/24 at 10:49; Status DC Labetalol HCl 20 mg STK-MED ONCE IV; Start 04/25/24 at 11:28; Stop 04/25/24 at 11:29; Status DC Sodium Chloride 1,000 ml @ 100 mls/hr Q10H IV; Start 04/25/24 at 12:00; Stop 04/25/24 at 15:59 PHYSICAL EXAMINATION: GENERAL: No acute distress. HEENT: Normocephalic, atraumatic. CARDIAC: Positive S1 and S2. No murmurs. LUNGS: Clear to auscultation bilaterally. ABDOMEN: Bowel sounds present, soft, nontender. EXTREMITIES: No edema bilaterally. Poorly palpable pedal pulses bilaterally left foot wrapped NEUROLOGIC: Cranial nerves 2-12 grossly intact. PSYCHIATRIC: Calm. ASSESSMENT: Critical limb ischemia left lower extremity Occluded left SFA with single-vessel runoff noted to left foot via patent left anterior tibial artery Diabetic angiopathy PLAN: We will discuss with the patient need for surgical revascularization once more and we will discuss whether she would like to go back and see Dr. Singh in [place] versus having an in-house consultation here. YAIMA PUENTE MD Apr 25, 2024 11:43
--- NOTE | 2024-04-25 11:59 | PN ---
SUBJECTIVE: A 73-year-old female with history of diabetes mellitus and hypertension, initially presented with nonhealing wound of the foot. The patient also with rhabdomyolysis, which has greatly improved while in the hospital. The patient's workup is consistent with osteomyelitis. She remains on the antibiotics and the patient is being seen as a followup visit for all of the above. REVIEW OF SYSTEMS: GENERAL: She is feeling improved since admission. HEENT: No change in vision. No change in hearing. CARDIOVASCULAR: There is no current chest pain or palpitations. PULMONARY: There is no shortness of breath. GASTROINTESTINAL: The patient is tolerating diet. MUSCULOSKELETAL: Complains of weakness. PHYSICAL EXAMINATION: VITAL SIGNS: Blood pressure 138/62, pulse in the 60s. GENERAL: She is a chronically ill female, older than appearing. HEENT: Head is atraumatic. Pupils equal, roving to light. Oropharynx is without exudate. Nares clear. NECK: There is no JVP. There is no thyromegaly, no mass. CARDIOVASCULAR: Regular. There is no S3, S4 gallop. LUNGS: Coarse with equal thoracic movement. ABDOMEN: Soft, nondistended, nontender. EXTREMITIES: Reveal no clubbing, no cyanosis. NEUROLOGIC: She is awake. She is alert. LABORATORY DATA: Sodium is 139, potassium is 4, BUN 16, creatinine 0.9. CPK is 985. Hemoglobin 9, hematocrit 28. IMPRESSION: * Acute renal failure. * Rhabdomyolysis. * Osteomyelitis. * Diabetes mellitus. PLAN: The patient's creatinine continues to improve. The patient's CPK also improved. The patient can continue with the IV hydration another 24 hours and we will continue to follow the chemistries closely. Once the patient is discharged, the patient can follow up in the [facility]. TID: [id number] RECEIPT: [id number]
[2024-04-25] MEDS: 0.9%NACL 1000ML 1,000 ML IV SCH (12:22)
[2024-04-25 14:59] LABS: INR 0.97 (0.85-1.15); PROTHROMBIN TIME 10.3 SEC (9.6-11.6)
--- NOTE | 2024-04-25 18:39 | NUR ---
PICC LINE RG PICC COLD ROLLING COORDINATOR HARITHA AT BEDSIDE TO PLACE PICC LINE. PICC PLACED IN RIGHT UPPER ARM. 5FR 2 LUMEN. XRAY VERIFIED OK TO USE. REFER TO PICC INSERTION GIBRAN OUT AND DOCUMENTATION RECORD FORM PLACED IN CHART. PATIENT TOLERATED PROCEDURE WELL.
[2024-04-25] MEDS: ceFEPime HCL 1 GM VIAL IVPB SCH (18:51)
--- NOTE | 2024-04-25 18:58 | NUR ---
ORDER RECD FROM DR. FORD TO REFER TO [facility] WHEN PLAN OF CARE IS COMPLETE HERE. SPOKE TO PATIENT, WHO ASKED THAT NEICE BE GIVEN THAT DECISION DISCUSSED WITH DEE ON PHONE AND CONSENT RECD WAS ADVISED BY DEE THAT PATIENT SPENT " ABOUT THREE MONTHS" AT [facility] AND JUST GOT OUT IN february PATIENT IS STILL PENDING AN EVALUATION BY DR. HARRIS RE SEVERE PAD IN LEFT FOOT. PT HAS DECLINED FEM POP BEFORE ACCORDING TO THE NOTES.
--- NOTE | 2024-04-25 19:06 | HMCIMG ---
PORTABLE CHEST RADIOGRAPH INDICATION: PICC LINE VERIFICATION COMPARISON: 04/22/2024 FINDINGS: Tip of right PICC within the SVC. insulation estimator leads overlie the field of view. Heart size is normal. Mild calcific plaque is present along the aortic arch long. The pulmonary vascularity and olamide appear normal. No abnormal pulmonary parenchymal opacity or consolidation identified. No significant pleural effusion noted. No pneumothorax detected. IMPRESSION: Tip of right PICC within the SVC. No radiographic evidence for any acute cardiopulmonary process.
[2024-04-25] MEDS: acetaMINOPHEN WITH coDEINE 1 TAB TAB PO PRN (20:04)
--- NOTE | 2024-04-25 22:36 | PN ---
INFECTIOUS DISEASE PROGRESS NOTE Date of Service: Apr 25, 2024 SUBJECTIVE: Patient was seen and examined at bedside in room 331. Patient is awake, alert and oriented x3. Patient is status post abdominal aortogram with bilateral runoff today with recommendations for surgical consult for Fem Pop. bypass. The MRI of the left foot is positive for osteomyelitis of the left great toe. Patient will need IV antibiotics for [address] a PICC line. Continue vancomycin per pharmacy protocol and cefepime IV. We will follow up on the left great toe wound culture results. Patient is afebrile, temperature is 98.4 and a WBC of 7.4. No episodes of emesis reported. We will continue to monitor patient's care. PHYSICAL EXAM EYES: Anicteric. Pupils equal and reactive. HENT: No oral thrush seen, moist Oral mucosa NECK: Supple, no JVD or thyromegaly. LUNGS: Good air entry. No rales, no rhonchi. CARDIOVASCULAR: S1, S2 regular. No murmur heard. ABDOMEN: Soft, non tender, bowel sounds present, no organomegaly CENTRAL NERVOUS SYSTEM: Awake, alert, oriented x 3. No focal deficits. SKIN: No rashes, no swelling. LYMPHATICS: No peripheral lymphadenopathy MUSCULOSKELETAL: No joint swelling, erythema or tenderness. EXTREMITIES: No cyanosis or clubbing. Left great toe ulcer. BACK: No deformity, no pressure ulcer. GENITOURINARY: No dysuria or hematuria Vital Sign (Last 12 Hours) 04/25/24 04/25/24 04/25/24 04/25/24 11:15 11:30 11:45 12:00 Temp 98.1 98.4 Pulse 68 70 72 71 Resp 18 18 18 18 B/P (MAP) 122/69 123/62 134/56 137/55 Pulse Ox 100 98 98 98 O2 Delivery Nasal Cannula Nasal Cannula Nasal Cannula Nasal Cannula O2 Flow Rate 2.0 2.0 2.0 2.0 04/25/24 04/25/24 04/25/24 04/25/24 12:30 13:00 14:00 15:00 Pulse 75 79 65 69 Resp 18 20 20 20 B/P (MAP) 149/56 151/64 148/60 155/66 Pulse Ox 99 98 O2 Delivery Nasal Cannula Nasal Cannula Nasal Cannula Nasal Cannula O2 Flow Rate 2.0 2.0 2.0 2.0 04/25/24 04/25/24 04/25/24 04/25/24 16:00 17:00 20:00 20:00 Temp 99.0 Pulse 78 74 70 Resp 20 18 17 B/P (MAP) 152/68 164/63 150/76 Pulse Ox 94 94 O2 Delivery Room Air Room Air Room Air Nasal Cannula* O2 Flow Rate 2 FiO2 28 Intake & Output (last 24hrs) 04/24/24 04/24/24 04/25/24 15:00 23:00 07:00 Intake Total 440 ml 220 ml 1200.0 ml Balance 440 ml 220 ml 1200.0 ml LABS: Laboratory: Test 04/25/24 19:12 04/25/24 19:00 04/25/24 14:43 04/25/24 05:27 Range/Units Whole Blood Glucose 129 H 70-110 MG/DL Vancomycin Level Trough 9.5 L 10.0-20.0 UG/ML Prothrombin Time 10.3 9.6-11.6 SEC Prothromb Time International Ratio 0.97 0.85-1.15 White Blood Count 7.4 4.8-10.8 K/uL Red Blood Count 3.05 L 4.00-5.50 MIL/uL Hemoglobin 9.0 L 12.0-16.0 g/dL Hematocrit 28.0 L 36-48 % Mean Corpuscular Volume 91.8 79-99 fL Mean Corpuscular Hemoglobin 29.5 27.0-33.0 pg Mean Corpuscular Hemoglobin Concent 32.1 32.0-36.0 g/dL Red Cell Distribution Width 14.7 11.0-15.5 % Platelet Count 152 130-400 K/uL Mean Platelet Volume 10.8 H 7.5-10.5 fL Immature Granulocyte % (Auto) 0.3 0-1 % Neutrophils (%) (Auto) 62.3 40.0-77.0 % Lymphocytes (%) (Auto) 19.0 L 21.0-51.0 % Monocytes (%) (Auto) 8.1 3.0-13.0 % Eosinophils (%) (Auto) 9.5 H 0.0-8.0 % Basophils (%) (Auto) 0.8 0.0-5.0 % Neutrophils # (Auto) 4.6 1.8-7.7 K/uL Lymphocytes # (Auto) 1.4 1.0-4.8 K/uL Monocytes # (Auto) 0.6 0.1-1.0 K/uL Eosinophils # (Auto) 0.71 H 0.00-0.70 K/uL Basophils # (Auto) 0.06 0.00-0.20 K/uL Absolute Immature Granulocyte (auto 0.02 0-1 K/uL Nucleated Red Blood Cells 0.0 0.0-0.19 % Sodium Level 139 136-145 mmol/L Potassium Level 4.1 3.5-5.1 mmol/L Chloride Level 110 101-111 mmol/L Carbon Dioxide Level 24 21-32 mmol/L Blood Urea Nitrogen 16 7-18 mg/dL Creatinine 0.9 0.5-1.0 mg/dL Glomerular Filtration Rate Calc 67 >90 mL/min Random Glucose 102 70-105 mg/dL Total Calcium 8.5 8.5-10.1 mg/dL Magnesium Level 1.50 L 1.80-2.40 mg/dL Total Bilirubin 0.6 0.2-1.0 mg/dL Aspartate Amino Transf (AST/SGOT) 50 H 10-37 U/L Alanine Aminotransferase (ALT/SGPT) 33 12-78 U/L Alkaline Phosphatase 57 50-136 U/L Total Creatine Kinase 985 #*H 21-232 U/L Total Protein 6.2 6.0-8.3 g/dL Albumin 3.0 L 3.5-5.0 g/dL Test 04/24/24 04:55 Range/Units Iron Level 35 L 50-170 mcg/dL Total Iron Binding Capacity 218 L 250-450 mcg/dL Percent Iron Saturation 16.0 L 22-44 % ASSESSMENT: Left great toe osteomyelitis. Left great toe ulcer. Peripheral vascular disease, s/p Abdominal aortogram with bilateral lower extremity runoffs Rhabdomyolysis. Diabetes mellitus. Anemia. PLAN: Place PICC line. Patient will need IV antibiotics for 6 weeks. Continue vancomycin per pharmacy protocol. Continue cefepime. Continue GI prophylaxis. Continue pain management. Continue monitoring glucose levels. We will follow up on the final culture results. This case was reviewed and discussed with my supervising physician and the above assessment and plan was formulated and agreed upon. ATTESTATION BY PHYSICIAN I have seen and examined the patient. I reviewed the documentation, medical decision making, and treatment plan as noted by the mid-level provider above. I agree with the findings and plan of care. CHRISTINA FORD MD, MIRTA L [facility] Apr 25, 2024 22:36
[2024-04-26] VITALS (7 sets, daily range): BP systolic 126–158; BP diastolic 56–66; PULSE 81–89; RESP 17–20; TEMP 98–99.5; O2SAT 94–97
[2024-04-26] MEDS: VANCOMYCIN 500MG+NS 100ML 100 ML IV SCH (06:00)
[2024-04-26 06:41] LABS: BASOPHILS # (AUTO) 0.03 K/uL (0.00-0.20); BASOPHILS % (AUTO) 0.6 % (0.0-5.0); EOSINOPHILS # (AUTO) 0.33 K/uL (0.00-0.70); EOSINOPHILS % (AUTO) 6.4 % (0.0-8.0); HEMATOCRIT 24.4 % (36-48); IMMATURE GRANULOCYTE ABSOLUTE 0.01 K/uL (0-1); LYMPHOCYTES # (AUTO) 1.2 K/uL (1.0-4.8); LYMPHOCYTES % (AUTO) 23.8 % (21.0-51.0); MEAN CORPUSCULAR HEMOGLOBIN 28.9 pg (27.0-33.0); MEAN CORPUSCULAR HGB CONC 31.1 g/dL (32.0-36.0); MEAN CORPUSCULAR VOLUME 92.8 fL (79-99); MONOCYTES # (AUTO) 0.6 K/uL (0.1-1.0); MONOCYTES % (AUTO) 11.8 % (3.0-13.0); NEUTROPHILS % (AUTO) 57.2 % (40.0-77.0); PLATELET COUNT (AUTO) 143 K/uL (130-400); RED BLOOD CELL COUNT(AUTO) 2.63 MIL/uL (4.00-5.50); RED CELL DISTRIBUTION WIDTH 15.1 % (11.0-15.5); WHITE BLOOD COUNT (AUTO) 5.2 K/uL (4.8-10.8)
[2024-04-26 07:03] LABS: ALBUMIN 2.7 g/dL (3.5-5.0); BILIRUBIN,TOTAL 0.9 mg/dL (0.2-1.0); CREATININE 0.8 mg/dL (0.5-1.0); MAGNESIUM 1.8 mg/dL (1.80-2.40); POTASSIUM 3.8 mmol/L (3.5-5.1); TOTAL PROTEIN, SERUM 5.8 g/dL (6.0-8.3)
--- NOTE | 2024-04-26 07:11 | PN ---
SUBJECTIVE: The patient is a 73-year-old female. She is concerned of pain to her left great toe. She has had a T-max of 99.5, pulse of 82, respirations of 17, blood pressure 126/56. White count 7.4, H and H 9 and 28, neutrophils 62.3. BUN and creatinine level 16 and 0.9, glucose 93. The patient is currently receiving IV vancomycin and IV cefepime. Cultures 3+ Gram-negative rods, identification and sensitivities to follow. The patient went to the quality assurance lab technician yesterday with the Cardiology Service. The patient was found to have critical limb ischemia of left lower extremity, chronic total occlusion of the proximal to distal left SFA with reconstitution noted. Sequential stenosis of the mid and distal SFA. Single vessel runoff to the left foot via the anterior tibial artery. Single vessel runoff to the right foot via the posterior tibial artery. Recommendations made by the Cardiology Service for the patient to be evaluated for a left [id number] bypass. Apparently, this was also recommended by her industrial gas fitter helper, Dr. Reyes in [place], but the patient never followed with the recommendation. The patient is being followed now for osteomyelitis left great toe, nonhealing ingrown toenail surgical site, left great toe. REVIEW OF SYSTEMS: CONSTITUTIONAL: Pain to the left great toe. No chills, no fevers, no night sweats, no nausea, vomiting, no diarrhea. T-max 99.5. HEENT: No problems with eyes, ears, nose or throat. CARDIOVASCULAR: Peripheral vascular disease, monophasic waveforms distal to the common femoral artery on the left. The patient's arteriogram showed occlusion of the superficial femoral artery. Single vessel runoff to the left foot via the anterior tibial artery and recommendations were made for a [id number]-[id number]-kizunpegg bypass. PULMONARY: No shortness of breath. ENDOCRINE: Diabetes. PSYCHIATRIC: Denied any depression. MUSCULOSKELETAL: Bunions and hammertoe deformities. INTEGUMENT: Ulcer to the lateral border of the left hallux, fibrotic base. No granulation tissue. Previous ingrown toenail surgery on the left in 11/2023. ASSESSMENT: Nonhealing ingrown toenail surgical site to the left with peripheral vascular disease and osteomyelitis. Recommendations have been made for the patient to be evaluated for a [id number] bypass on the left due to occlusion of the superficial femoral artery on the left and single vessel runoff to the left foot via the anterior tibial artery. PLAN: We will continue with local wound care and we will start Medihoney dressings. We will continue with IV vancomycin and cefepime. Await the results of the final cultures. The patient to be evaluated with a possibility of a imjwwoc-[id number]-piuynjgmi bypass on that left side. Continue to follow the patient closely while in-house. TID: [id number] RECEIPT: [id number]
--- NOTE | 2024-04-26 11:08 | PN ---
[facility] PROGRESS NOTE Date of Service: Apr 26, 2024 Time of Service: 10:58 SUBJECTIVE: [ ] This is a 73-year-old female that was admitted on 04/22/2024 with chief complaints of lower extremity pain patient has underlying history of PVD. Patient is being followed by regional sales engineer Dr. Solitario evaluation of ingrown toenail of the left foot. ER workup was done imaging arterial ultrasound which showed 50-80% stenosis involving the right common femoral artery. Monophasic flow was noted along most of the left lower extremity except for left common femoral and monophasic flow was noted in the right posterior tibial, anterior tibial and dorsalis pedis. Lab Pack Chemist's has been consulted we will follow the recommendations. Patient is currently on Xarelto 2.5 mg. S/p abdominal aortography with bilateral runoffs with Dr Fam on 04/25/2024 04/26/2024 Today on bedside evaluation patient was found awake alert and oriented x 3. The power chart reviewed, vital signs, laboratory tests, imaging test and medications have been reviewed. There was a reported temperature of 100 yesterday evening around midnight. Latest vital signs are stable, afebrile, satting 97% on room air. H&H is 7.6/24.4, almost a two point drop from yesterday at 928. BMP is stable, total CK is downtrending now at 686. Wound cultures growing Enterobacter agglomerans and Klebsiella pneumoniae. Continue IV cefepime and vancomycin at ID's direction. Continue wound care. We will follow up with Dr. Lara's recommendations for possible fem-pop secondary to total occlusion of proximal to distal left SFA. Case management also coordinating for LTAC placement REVIEW OF SYSTEMS CONSTITUTIONAL: Denies fevers, chills, or night sweats. No unintentional weight loss reported. NEUROLOGICAL: Denies headache, amaurosis fugax, motor weakness, sensory deficit, vertigo/spinning sensation, gait abnormalities, or tremors. ENT: No hearing loss, otalgia, otorrhea, rhinitis, rhinorrhea, hoarseness, or sore throat. CARDIOVASCULAR: Denies any exertional angina, dyspnea on exertion, orthopnea, paroxysmal nocturnal dyspnea, palpitations, life-threatening arrhythmias, claudication. PULMONARY: Denies any shortness of breath, cough, phlegm/sputum, hemoptysis, pleuritic chest pain. GASTROINTESTINAL: Denies any type of dysphagia to either liquids or solids. Denies nausea, vomiting, pyrosis, early satiety, abdominal pain, diarrhea, constipation, or changes in stool consistency or caliber. Denies coffee-ground emesis, hematemesis, hematochezia, or melanotic stools. GENITOURINARY: Denies frequency, urgency, nocturia, hematuria or incontinence (Storage/Irritative symptoms.) Low urinary stream, straining to void, urinary intermittency or hesitancy, splitting of the voiding stream, terminal dribbling. ENDOCRINOLOGIC: Denies polyuria, polydipsia, polyphagia or heat/cold intolerances. HEMATOLOGIC: Denies thrombophilia/previous clots, or coagulopathy/bleeding disorders. ONCOLOGIC: Denies personal history of malignancy. DERMATOLOGIC: Denies rashes or pruritus. PSYCHIATRIC: Denies any suicidal or homicidal ideation. Denies hallucinations. Musculoskeletal: Pain in the left lower extremity and right lower extremity PHYSICAL EXAM GENERAL APPEARANCE: The patient is awake, alert, and oriented, in no acute cardiopulmonary distress. NEUROLOGICAL: Cranial nerves II-XII grossly intact. Motor is 5/5 in bilateral upper and lower extremities proximal to distal. No sensory deficits. HEENT: Face is symmetric. Pupils are equal and reactive. Extraocular movements are intact. NECK: Supple. No JVD. No thyromegaly. No submental, submandibular, pre- /postauricular, occipital or supraclavicular lymphadenopathy. CHEST: Normal chest expansion. No Telemetry. LUNGS: Absence of any rales, rhonchi or any wheezing. CARDIOVASCULAR: Regular. S1 and S2 normal. No appreciable rubs, murmurs or gallops. ABDOMEN: Soft, nontender, and nondistended. There is no rebound, voluntary guarding, or rigidity. : Deferred. No [place]. EXTREMITIES: She has a erythema noted in the big hallux of the left foot. She has possible paronychia. No drainage noted. There is mild tenderness to palpation on the lateral aspect of the nail bed. Pulses faintly palpable. Extremities warm to touch bilaterally. SKIN: No skin breakdown. Vital Signs (last 8hr) Date Time Temp Pulse Resp B/P (MAP) Pulse Ox O2 Delivery O2 Flow Rate FiO2 04/26/24 08:00 98.6 82 20 158/66 97 Room Air 04/26/24 03:44 99.5 82 17 126/56 97 Room Air LABS: Laboratory: Test 04/26/24 06:24 04/26/24 05:10 04/25/24 19:00 04/25/24 14:43 Range/Units White Blood Count 5.2 4.8-10.8 K/uL Red Blood Count 2.63 L 4.00-5.50 MIL/uL Hemoglobin 7.6 L 12.0-16.0 g/dL Hematocrit 24.4 L 36-48 % Mean Corpuscular Volume 92.8 79-99 fL Mean Corpuscular Hemoglobin 28.9 27.0-33.0 pg Mean Corpuscular Hemoglobin Concent 31.1 L 32.0-36.0 g/dL Red Cell Distribution Width 15.1 11.0-15.5 % Platelet Count 143 130-400 K/uL Mean Platelet Volume 11.1 H 7.5-10.5 fL Immature Granulocyte % (Auto) 0.2 0-1 % Neutrophils (%) (Auto) 57.2 40.0-77.0 % Lymphocytes (%) (Auto) 23.8 21.0-51.0 % Monocytes (%) (Auto) 11.8 3.0-13.0 % Eosinophils (%) (Auto) 6.4 0.0-8.0 % Basophils (%) (Auto) 0.6 0.0-5.0 % Neutrophils # (Auto) 3.0 1.8-7.7 K/uL Lymphocytes # (Auto) 1.2 1.0-4.8 K/uL Monocytes # (Auto) 0.6 0.1-1.0 K/uL Eosinophils # (Auto) 0.33 0.00-0.70 K/uL Basophils # (Auto) 0.03 0.00-0.20 K/uL Absolute Immature Granulocyte (auto 0.01 0-1 K/uL Nucleated Red Blood Cells 0.0 0.0-0.19 % Sodium Level 143 136-145 mmol/L Potassium Level 3.8 3.5-5.1 mmol/L Chloride Level 112 H 101-111 mmol/L Carbon Dioxide Level 23 21-32 mmol/L Blood Urea Nitrogen 13 7-18 mg/dL Creatinine 0.8 0.5-1.0 mg/dL Glomerular Filtration Rate Calc 77 >90 mL/min Random Glucose 89 70-105 mg/dL Total Calcium 8.6 8.5-10.1 mg/dL Magnesium Level 1.80 1.80-2.40 mg/dL Total Bilirubin 0.9 0.2-1.0 mg/dL Aspartate Amino Transf (AST/SGOT) 39 H 10-37 U/L Alanine Aminotransferase (ALT/SGPT) 29 12-78 U/L Alkaline Phosphatase 47 L 50-136 U/L Total Creatine Kinase 686 #*H 21-232 U/L Total Protein 5.8 L 6.0-8.3 g/dL Albumin 2.7 L 3.5-5.0 g/dL Whole Blood Glucose 93 70-110 MG/DL Vancomycin Level Trough 9.5 L 10.0-20.0 UG/ML Prothrombin Time 10.3 9.6-11.6 SEC Prothromb Time International Ratio 0.97 0.85-1.15 Current Medications Medications (Trade) Dose Ordered Sig/Candace Route PRN Reason Start Time Stop Time Status Last Admin Dose Admin Acetaminophen (TYLenol 500MG TAB) 500 mg Q6H PRN PO MILD PAIN (1-3) 04/22/24 15:30 05/22/24 15:29 04/24/24 10:07 500 MG Acetaminophen/ Codeine Phosphate (TYLenol-coDEINE TAB) 1 tab Q6H PRN PO MODERATE PAIN (4-6) 04/25/24 09:00 05/25/24 08:59 04/25/24 20:04 1 TAB Cefepime HCl (MAXipime 1 GM vial) 1 gm Q24H IVPB 04/25/24 19:00 05/05/24 18:59 04/25/24 18:51 1 GM Cefepime HCl (MAXipime 1 GM vial) 1 gm Q24H IVPB 04/22/24 15:30 04/25/24 18:45 DC 04/24/24 16:23 1 GM Cilostazol (PLETal 100MG TAB) 50 mg BID PO 04/22/24 21:00 05/22/24 20:59 04/26/24 09:49 50 MG Famotidine (Pepcid 20mg Tab) 20 mg DAILY PO 04/25/24 09:00 05/25/24 08:59 04/26/24 09:49 20 MG Insulin Human Regular (humuLIN R 100 UNIT/ML 3ML) INSULIN SLIDING SCAL... ACHS SQ 04/22/24 21:00 05/22/24 20:59 04/23/24 19:55 3 UNIT Levetiracetam (kepPRA 500 MG TABLET) 500 mg BID PO 04/22/24 21:00 05/22/24 20:59 04/26/24 09:49 500 MG Losartan Potassium (CozAAR 50 mg TAB) 50 mg DAILY PO 04/23/24 09:00 05/23/24 08:59 04/26/24 09:49 50 MG Magnesium Sulfate 50 ml @ 0 mls/hr PROTOCOL PRN IV low mag level 04/24/24 10:00 05/24/24 09:59 04/25/24 06:47 25 MLS/HR Pharmacy Profile Note (Pharmacy Communication) 1 each ONCE MISC 04/22/24 14:00 04/22/24 14:44 DC Potassium Chloride 100 ml @ 100 mls/hr AD PRN IV POTASSIUM PROTOCOL 04/24/24 10:00 05/24/24 09:59 Potassium Chloride (K-Dur/Klor-Con 20meq) 20 meq AD PRN PO POTASSIUM PROTOCOL 04/24/24 10:00 05/24/24 09:59 04/24/24 13:20 20 MEQ Potassium Chloride (KCl 10% Elixir 20meq/15ml) 20 meq AD PRN PO POTASSIUM PROTOCOL 04/24/24 10:00 05/24/24 09:59 Rivaroxaban (Xarelto) 2.5 mg BID PO 04/22/24 21:00 04/23/24 15:31 DC 04/23/24 10:16 2.5 MG Rivaroxaban (Xarelto) 2.5 mg BID PO 04/23/24 21:00 05/22/24 20:59 04/25/24 20:03 2.5 MG Sodium Chloride 1,000 ml @ 100 mls/hr Q10H IV 04/25/24 12:00 04/25/24 15:59 DC 04/25/24 12:22 100 MLS/HR Sodium Chloride 1,000 ml @ 125 mls/hr Q8H IV 04/22/24 15:30 04/25/24 11:39 DC 04/25/24 04:04 125 MLS/HR Vancomycin HCl 100 ml @ 100 mls/hr BID@0600,1800 IV 04/26/24 06:00 05/06/24 05:59 04/26/24 06:00 100 MLS/HR Vancomycin HCl 250 ml @ 125 mls/hr ONCE IV 04/22/24 18:30 04/22/24 22:30 DC 04/22/24 18:42 125 MLS/HR Vancomycin HCl (Vancomycin 750mg) 750 mg Q24H IVPB 04/23/24 16:00 04/23/24 19:45 DC Vancomycin HCl (Vancomycin 750mg) 750 mg Q24H IVPB 04/23/24 20:00 04/25/24 20:51 DC 04/25/24 20:05 750 MG Vancomycin HCl (Vancomycin Protocol) 1 each AD IV 04/22/24 14:00 05/06/24 13:59 Vitamin B Complex (Vitamin B-12) 1,000 mcg DAILY PO 04/25/24 09:00 05/25/24 08:59 04/26/24 09:49 1,000 MCG DIAGNOSTICS / RADIOLOGY: [ ] ASSESSMENT: Left big toe cellulitis with associated paronychia POA Critical limb ischemia left lower extremity, POA via abdominal aortogram 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 Fam Angiography shows critical limb ischemia to left lower extremity, chronic total occlusion of proximal to distal left SFA. Lab Pack Chemist recommended Dr. Lara consult for possible fem-pop Continue IV cefepime and vancomycin Dr. Chao for antimicrobial stewardship. Follow Wound care recommendations by regional sales engineer IV fluids NS at 125 mL/hour we will continue to monitor CK levels. trending down Continues Xarelto 2.5 mg b.i.d., Pletal 50 mg b.i.d. Blood pressure control we will adjust medications accordingly continue with losartan 50 mg p.o. daily. Monitor H&H trend transfuse to keep hemoglobin 7.0 patient received one dose of Venofer Oral supplements folic acid1 mg vitamin B12 1000 mcg daily Continue glucometer checks before meals and at bedtime Continue SSI Continue hypoglycemic protocol Monitoring replace electrolytes Home medications reviewed and reconciled Continue seizure precautions Continue IV iron Monitor a.m. labs PRN Treatment - Add when necessary meds for nausea, vomiting, pain, constipation, insomnia. DVT/GI prophylaxis- Continue Xarelto and famotidine at current doses. Full CODE STATUS Case management coordinating for LTAC placement This document was generated in part using voice recognition software, occasional wrong word or sound alike substitutions may have occurred due to the inherent limitations of voice recognition software. Read the chart carefully and recognize using context, where the substitutions have occurred. Although every effort was made to edit the content, senior director insight and typing errors may occur DANIELLE ACUÑA Apr 26, 2024 11:08
--- NOTE | 2024-04-26 12:32 | PN ---
INFECTIOUS DISEASE PROGRESS NOTE Date of Service: Apr 26, 2024 SUBJECTIVE: Patient was seen and examined at bedside in room 331. Patient is awake, alert and oriented x3. The left great toe final wound culture results came back positive for Enterobacter agglomerans and Klebsiella pneumoniae. Patient had a low-grade fever of 100.0 throughout the night, current temperature is 98.6., temperature is 98.4. No episodes of emesis reported. Continues on vancomycin per pharmacy protocol and cefepime. Patient has been evaluated by cardiovascular surgeon for a fem-pop bypass which is pending to be scheduled. No other issues reported by nursing. PHYSICAL EXAM EYES: Anicteric. Pupils equal and reactive. HENT: No oral thrush seen, moist Oral mucosa. NECK: Supple, no JVD or thyromegaly. LUNGS: Good air entry. No rales, no rhonchi. CARDIOVASCULAR: S1, S2 regular. No murmur heard. ABDOMEN: Soft, non tender, bowel sounds present, no organomegaly. CENTRAL NERVOUS SYSTEM: Awake, alert, oriented x 3. SKIN: No rashes, no swelling. LYMPHATICS: No peripheral lymphadenopathy MUSCULOSKELETAL: No joint swelling, erythema or tenderness. EXTREMITIES: No cyanosis or clubbing. Left great toe ulcer. BACK: No deformity, no pressure ulcer. GENITOURINARY: No dysuria or hematuria. Vital Sign (Last 12 Hours) 04/26/24 04/26/24 03:44 08:00 Temp 99.5 98.6 Pulse 82 82 Resp 17 20 B/P (MAP) 126/56 158/66 Pulse Ox 97 97 O2 Delivery Room Air Room Air Intake & Output (last 24hrs) 04/25/24 04/25/24 04/26/24 15:00 23:00 07:00 Intake Total 150.0 ml 600 ml Output Total 350 ml Balance 150.0 ml 250 ml LABS: Laboratory: Test 04/26/24 11:41 04/26/24 06:24 04/25/24 19:00 04/25/24 14:43 Range/Units Whole Blood Glucose 125 H 70-110 MG/DL White Blood Count 5.2 4.8-10.8 K/uL Red Blood Count 2.63 L 4.00-5.50 MIL/uL Hemoglobin 7.6 L 12.0-16.0 g/dL Hematocrit 24.4 L 36-48 % Mean Corpuscular Volume 92.8 79-99 fL Mean Corpuscular Hemoglobin 28.9 27.0-33.0 pg Mean Corpuscular Hemoglobin Concent 31.1 L 32.0-36.0 g/dL Red Cell Distribution Width 15.1 11.0-15.5 % Platelet Count 143 130-400 K/uL Mean Platelet Volume 11.1 H 7.5-10.5 fL Immature Granulocyte % (Auto) 0.2 0-1 % Neutrophils (%) (Auto) 57.2 40.0-77.0 % Lymphocytes (%) (Auto) 23.8 21.0-51.0 % Monocytes (%) (Auto) 11.8 3.0-13.0 % Eosinophils (%) (Auto) 6.4 0.0-8.0 % Basophils (%) (Auto) 0.6 0.0-5.0 % Neutrophils # (Auto) 3.0 1.8-7.7 K/uL Lymphocytes # (Auto) 1.2 1.0-4.8 K/uL Monocytes # (Auto) 0.6 0.1-1.0 K/uL Eosinophils # (Auto) 0.33 0.00-0.70 K/uL Basophils # (Auto) 0.03 0.00-0.20 K/uL Absolute Immature Granulocyte (auto 0.01 0-1 K/uL Nucleated Red Blood Cells 0.0 0.0-0.19 % Sodium Level 143 136-145 mmol/L Potassium Level 3.8 3.5-5.1 mmol/L Chloride Level 112 H 101-111 mmol/L Carbon Dioxide Level 23 21-32 mmol/L Blood Urea Nitrogen 13 7-18 mg/dL Creatinine 0.8 0.5-1.0 mg/dL Glomerular Filtration Rate Calc 77 >90 mL/min Random Glucose 89 70-105 mg/dL Total Calcium 8.6 8.5-10.1 mg/dL Magnesium Level 1.80 1.80-2.40 mg/dL Total Bilirubin 0.9 0.2-1.0 mg/dL Aspartate Amino Transf (AST/SGOT) 39 H 10-37 U/L Alanine Aminotransferase (ALT/SGPT) 29 12-78 U/L Alkaline Phosphatase 47 L 50-136 U/L Total Creatine Kinase 686 #*H 21-232 U/L Total Protein 5.8 L 6.0-8.3 g/dL Albumin 2.7 L 3.5-5.0 g/dL Vancomycin Level Trough 9.5 L 10.0-20.0 UG/ML Prothrombin Time 10.3 9.6-11.6 SEC Prothromb Time International Ratio 0.97 0.85-1.15 ASSESSMENT: Left great toe osteomyelitis. Left great toe ulcer infection with Enterobacter agglomerans and Klebsiella pneumoniae. Peripheral vascular disease, s/p Abdominal aortogram with bilateral lower extremity runoffs Rhabdomyolysis. Diabetes mellitus. Anemia. PLAN: Continue vancomycin per pharmacy protocol. Continue cefepime. Continue GI prophylaxis. Continue pain management. Continue monitoring glucose levels. Patient will need 6 weeks of IV antibiotics. Patient has been evaluated by cardiovascular surgeon and pending a fem-pop bypass. This case was reviewed and discussed with my supervising physician and the above assessment and plan was formulated and agreed upon. ATTESTATION BY PHYSICIAN I have seen and examined the patient. I reviewed the documentation, medical decision making, and treatment plan as noted by the mid-level provider above. I agree with the findings and plan of care. CHRISTINA FORD MD, [facility] Apr 26, 2024 12:32
[2024-04-26] MEDS: IRON sUCROse COMPLEX 300 MG in 0.9% NACL 250ML 250 ML IV ONE (20:40)
--- NOTE | 2024-04-26 21:06 | PN ---
FOLLOWUP PROGRESS NOTE SUBJECTIVE: A 73-year-old female with a history of diabetes mellitus and hypertension. She initially presented, found to have nonhealing wound to the foot. The patient did have rhabdomyolysis, which has improved with the IV hydration. The patient's creatinine also is improved. Workup is consistent with osteomyelitis and the patient is being seen by case management in regards to long-term IV antibiotics and the patient is being seen for all of the above. REVIEW OF SYSTEMS: GENERAL: She is feeling improved since admission. HEENT: No change in vision. No change in hearing. CARDIOVASCULAR: There is no current chest pain or palpitations. PULMONARY: There is no shortness of breath. GASTROINTESTINAL: She is tolerating a diet. MUSCULOSKELETAL: Complains of weakness. PHYSICAL EXAMINATION: VITAL SIGNS: Blood pressure 146/56, pulse in the 80s. GENERAL: She is a chronically ill female, elderly, lying in bed on the medical floor. HEENT: Head is atraumatic. Pupils are equal, roving to light. Oropharynx is without exudate. Nares clear. NECK: There is no JVP. There is no thyromegaly, no mass. CARDIOVASCULAR: Regular. There is no S3, S4 gallop. LUNGS: Coarse with equal thoracic movement. ABDOMEN: Soft, nondistended, nontender. EXTREMITIES: Reveal no clubbing, no cyanosis. NEUROLOGIC: She is awake. She is alert. LABORATORY DATA: Sodium 143, potassium 3.8, BUN 13, creatinine 0.8. Hemoglobin 7.6, hematocrit 24. IMPRESSION: * Acute renal failure. * Rhabdomyolysis. * Osteomyelitis. * History of anemia. PLAN: The patient with renal dysfunction, which has greatly improved. The patient's rhabdomyolysis is also improved. She is being set ____ for outpatient IV antibiotics. The patient will be given a dose of IV iron for the anemia and we will follow closely. Once the patient is discharged, follow up in the Renal Clinic. TID: [id number] RECEIPT: [id number]
--- NOTE | 2024-04-26 21:37 | PN ---
REFERRING PHYSICIAN: Dr. Fam. CONSULTING PHYSICIAN: Salvador Lara MD REASON FOR CONSULTATION: Single vessel runoff to the left leg with obstruction of superficial femoral artery and reconstitution of popliteal and single vessel runoff to the foot. I had the opportunity to review the films and discussed the case with Dr. Fam. We both agree surgery is indicated and we have recommended. I have also discussed with the patient indications of the procedure as well as the potential complications including but not limited to postoperative bleeding, infection, stroke and/or ultimately losing the extremity. She understands and would like to proceed with surgical revascularization. Plan for surgery. TID: [id number] RECEIPT: [id number]
[2024-04-27 00:04] VITALS: BP 147/61; PULSE 81; RESP 17; TEMP 99
[2024-04-27 03:19] LABS: BASOPHILS # (AUTO) 0.04 K/uL (0.00-0.20); BASOPHILS % (AUTO) 0.7 % (0.0-5.0); EOSINOPHILS # (AUTO) 0.63 K/uL (0.00-0.70); EOSINOPHILS % (AUTO) 10.4 % (0.0-8.0); HEMATOCRIT 22.9 % (36-48); IMMATURE GRANULOCYTE ABSOLUTE 0.01 K/uL (0-1); LYMPHOCYTES # (AUTO) 1.8 K/uL (1.0-4.8); LYMPHOCYTES % (AUTO) 28.9 % (21.0-51.0); MEAN CORPUSCULAR HEMOGLOBIN 28.7 pg (27.0-33.0); MEAN CORPUSCULAR VOLUME 92.7 fL (79-99); MONOCYTES # (AUTO) 0.7 K/uL (0.1-1.0); NEUTROPHILS # (AUTO) 2.9 K/uL (1.8-7.7); NEUTROPHILS % (AUTO) 47.8 % (40.0-77.0); PLATELET COUNT (AUTO) 132 K/uL (130-400); RED BLOOD CELL COUNT(AUTO) 2.47 MIL/uL (4.00-5.50); RED CELL DISTRIBUTION WIDTH 14.7 % (11.0-15.5); WHITE BLOOD COUNT (AUTO) 6.1 K/uL (4.8-10.8)
[2024-04-27 03:35] LABS: ALBUMIN 2.7 g/dL (3.5-5.0); BILIRUBIN,TOTAL 0.8 mg/dL (0.2-1.0); CREATININE 0.9 mg/dL (0.5-1.0); MAGNESIUM 1.7 mg/dL (1.80-2.40); POTASSIUM 3.5 mmol/L (3.5-5.1); TOTAL PROTEIN, SERUM 5.8 g/dL (6.0-8.3)
[2024-04-27 03:43] VITALS: BP 151/71; PULSE 76; RESP 17; TEMP 98.8
[2024-04-27 08:00] VITALS: BP 134/58; PULSE 75; RESP 18; TEMP 98.7
--- NOTE | 2024-04-27 08:39 | PN ---
SUBJECTIVE: The patient and a bone rasp fevers very pleasant 73-year-old diabetic female with concern of pain to her left great toe. T-max 99.0, pulse 81, respirations 17, blood pressure 147/61. She has a white count of 6.1, H and H 7.1 and 22.9, platelets 132, BUN and creatinine 20 and 0.9. The patient is currently receiving IV vancomycin and IV cefepime. The patient has had cultures that have grown back enterobacter ____ and Klebsiella pneumonia. She has been followed by Infectious Disease. The patient was found to have critical limb ischemia of the left lower extremity, chronic total occlusion of the proximal to distal SFA with reconstitution noted. Sequential stenosis of the mid and distal SFA. Single vessel runoff to the left foot via the anterior tibial artery. Single vessel runoff to the right foot via the posterior tibial artery. Recommendations made by the Cardiology Service that the patient will be evaluated for a left [id number] bypass. The patient has been evaluated by the Cardiothoracic Surgery Service and they are planning on a [id number] bypass to that left lower extremity. The patient is being followed now for osteomyelitis to the left great toe, nonhealing ingrown toenail surgical site since 11/2023 with the left great toe. REVIEW OF SYSTEMS: CONSTITUTIONAL: Pain to the left great toe. T-max 99.0. No chills, no fevers, no night sweats, no nausea, vomiting, no diarrhea. CARDIOVASCULAR: Peripheral vascular disease, monophasic waveforms distal to the common femoral on the left. The patient is being evaluated for [id number] bypass on the left by the Cardiothoracic Surgery Service. PULMONARY: No shortness of breath. ENDOCRINE: Diabetes. PSYCHIATRIC: Denied depression. MUSCULOSKELETAL: Bunions and hammertoes. INTEGUMENT: She has an ulcer to the lateral border left hallux with a fibrotic base. No granulation tissue. Previous ingrown toenail surgery to the area in 11/2023. ASSESSMENT: Nonhealing ingrown toenail surgical site to the left, peripheral vascular disease and osteomyelitis. The patient with wound cultures showing enterobacter and Klebsiella, receiving vancomycin and cefepime per cultures and sensitivities. The patient found that the patient is being evaluated for a lower extremity bypass on that left side [id number] by the Cardiothoracic Surgery Service. PLAN: We will continue with local wound care with Medihoney dressings to the left great toe lateral border. Continue with IV vancomycin and IV Zosyn. Awaiting evaluation by the Cardiothoracic Surgery Service for a [id number] bypass on the left. The patient is being followed closely for her anemia, currently with a hemoglobin of 7.1. We will continue to follow the patient closely while in-house. TID: [id number] RECEIPT: [id number]
--- NOTE | 2024-04-27 08:41 | PN ---
[facility] PROGRESS NOTE Date of Service: Apr 27, 2024 Time of Service: 08:40 SUBJECTIVE: [ ] This is a 73-year-old female that was admitted on 04/22/2024 with chief complaints of lower extremity pain patient has underlying history of PVD. Patient is being followed by administrative coordinator Dr. Solitario evaluation of ingrown toenail of the left foot. ER workup was done imaging arterial ultrasound which showed 50-80% stenosis involving the right common femoral artery. Monophasic flow was noted along most of the left lower extremity except for left common femoral and monophasic flow was noted in the right posterior tibial, anterior tibial and dorsalis pedis. [employer]fficient [employer]er's has been consulted we will follow the recommendations. Patient is currently on Xarelto 2.5 mg. S/p abdominal aortography with bilateral runoffs with Dr Fam on 04/25/2024 04/27/2024 Today on bedside evaluation patient was found awake alert and oriented x 3. The power chart reviewed, vital signs, laboratory tests, imaging test and medications have been reviewed. Vital signs this morning are stable, afebrile, satting 95% on room air. H&H is 7.1/22.9, follow up from 10.2/31.4 on admission. Transfusing 1 unit PRBCs today. CMP is stable. Continue cefepime and vancomycin via PICC line at ID's direction. Dr. Lara planning fem-pop. Patient agrees to move forward with the procedure. Case management also coordinating for LTAC placement. REVIEW OF SYSTEMS CONSTITUTIONAL: Denies fevers, chills, or night sweats. No unintentional weight loss reported. NEUROLOGICAL: Denies headache, amaurosis fugax, motor weakness, sensory deficit, vertigo/spinning sensation, gait abnormalities, or tremors. ENT: No hearing loss, otalgia, otorrhea, rhinitis, rhinorrhea, hoarseness, or sore throat. CARDIOVASCULAR: Denies any exertional angina, dyspnea on exertion, orthopnea, paroxysmal nocturnal dyspnea, palpitations, life-threatening arrhythmias, claudication. PULMONARY: Denies any shortness of breath, cough, phlegm/sputum, hemoptysis, pleuritic chest pain. GASTROINTESTINAL: Denies any type of dysphagia to either liquids or solids. Denies nausea, vomiting, pyrosis, early satiety, abdominal pain, diarrhea, constipation, or changes in stool consistency or caliber. Denies coffee-ground emesis, hematemesis, hematochezia, or melanotic stools. GENITOURINARY: Denies frequency, urgency, nocturia, hematuria or incontinence (Storage/Irritative symptoms.) Low urinary stream, straining to void, urinary intermittency or hesitancy, splitting of the voiding stream, terminal dribbling. ENDOCRINOLOGIC: Denies polyuria, polydipsia, polyphagia or heat/cold intolerances. HEMATOLOGIC: Denies thrombophilia/previous clots, or coagulopathy/bleeding disorders. ONCOLOGIC: Denies personal history of malignancy. DERMATOLOGIC: Denies rashes or pruritus. PSYCHIATRIC: Denies any suicidal or homicidal ideation. Denies hallucinations. Musculoskeletal: Pain in the left lower extremity and right lower extremity PHYSICAL EXAM GENERAL APPEARANCE: The patient is awake, alert, and oriented, in no acute cardiopulmonary distress. NEUROLOGICAL: Cranial nerves II-XII grossly intact. Motor is 5/5 in bilateral upper and lower extremities proximal to distal. No sensory deficits. HEENT: Face is symmetric. Pupils are equal and reactive. Extraocular movements are intact. NECK: Supple. No JVD. No thyromegaly. No submental, submandibular, pre- /postauricular, occipital or supraclavicular lymphadenopathy. CHEST: Normal chest expansion. No Telemetry. LUNGS: Absence of any rales, rhonchi or any wheezing. CARDIOVASCULAR: Regular. S1 and S2 normal. No appreciable rubs, murmurs or gallops. ABDOMEN: Soft, nontender, and nondistended. There is no rebound, voluntary guarding, or rigidity. : Deferred. No [place]. EXTREMITIES: She has a erythema noted in the big hallux of the left foot. She has possible paronychia. No drainage noted. There is mild tenderness to palpation on the lateral aspect of the nail bed. Pulses faintly palpable. Extremities warm to touch bilaterally. SKIN: No skin breakdown. Vital Signs (last 8hr) Date Time Temp Pulse Resp B/P (MAP) Pulse Ox O2 Delivery O2 Flow Rate FiO2 04/27/24 08:00 98.8 75 18 134/58 95 Room Air 04/27/24 03:43 98.8 76 17 151/71 97 Room Air LABS: Laboratory: Test 04/27/24 05:40 04/27/24 03:08 04/26/24 06:24 04/25/24 19:00 Range/Units Whole Blood Glucose 86 70-110 MG/DL White Blood Count 6.1 4.8-10.8 K/uL Red Blood Count 2.47 L 4.00-5.50 MIL/uL Hemoglobin 7.1 L 12.0-16.0 g/dL Hematocrit 22.9 L 36-48 % Mean Corpuscular Volume 92.7 79-99 fL Mean Corpuscular Hemoglobin 28.7 27.0-33.0 pg Mean Corpuscular Hemoglobin Concent 31.0 L 32.0-36.0 g/dL Red Cell Distribution Width 14.7 11.0-15.5 % Platelet Count 132 130-400 K/uL Mean Platelet Volume 10.8 H 7.5-10.5 fL Immature Granulocyte % (Auto) 0.2 0-1 % Neutrophils (%) (Auto) 47.8 40.0-77.0 % Lymphocytes (%) (Auto) 28.9 21.0-51.0 % Monocytes (%) (Auto) 12.0 3.0-13.0 % Eosinophils (%) (Auto) 10.4 H 0.0-8.0 % Basophils (%) (Auto) 0.7 0.0-5.0 % Neutrophils # (Auto) 2.9 1.8-7.7 K/uL Lymphocytes # (Auto) 1.8 1.0-4.8 K/uL Monocytes # (Auto) 0.7 0.1-1.0 K/uL Eosinophils # (Auto) 0.63 0.00-0.70 K/uL Basophils # (Auto) 0.04 0.00-0.20 K/uL Absolute Immature Granulocyte (auto 0.01 0-1 K/uL Nucleated Red Blood Cells 0.0 0.0-0.19 % Red Blood Cell Morphology See comments Sodium Level 140 136-145 mmol/L Potassium Level 3.5 3.5-5.1 mmol/L Chloride Level 109 101-111 mmol/L Carbon Dioxide Level 25 21-32 mmol/L Blood Urea Nitrogen 20 H 7-18 mg/dL Creatinine 0.9 0.5-1.0 mg/dL Glomerular Filtration Rate Calc 67 >90 mL/min Random Glucose 100 70-105 mg/dL Total Calcium 8.4 L 8.5-10.1 mg/dL Magnesium Level 1.70 L 1.80-2.40 mg/dL Total Bilirubin 0.8 0.2-1.0 mg/dL Aspartate Amino Transf (AST/SGOT) 29 10-37 U/L Alanine Aminotransferase (ALT/SGPT) 26 12-78 U/L Alkaline Phosphatase 48 L 50-136 U/L Total Protein 5.8 L 6.0-8.3 g/dL Albumin 2.7 L 3.5-5.0 g/dL Total Creatine Kinase 686 #*H 21-232 U/L Vancomycin Level Trough 9.5 L 10.0-20.0 UG/ML Test 04/25/24 14:43 Range/Units Prothrombin Time 10.3 9.6-11.6 SEC Prothromb Time International Ratio 0.97 0.85-1.15 Current Medications Medications (Trade) Dose Ordered Sig/Candace Route PRN Reason Start Time Stop Time Status Last Admin Dose Admin Acetaminophen (TYLenol 500MG TAB) 500 mg Q6H PRN PO MILD PAIN (1-3) 04/22/24 15:30 05/22/24 15:29 04/26/24 23:05 500 MG Acetaminophen/ Codeine Phosphate (TYLenol-coDEINE TAB) 1 tab Q6H PRN PO MODERATE PAIN (4-6) 04/25/24 09:00 05/25/24 08:59 04/25/24 20:04 1 TAB Cefepime HCl (MAXipime 1 GM vial) 1 gm Q24H IVPB 04/25/24 19:00 05/05/24 18:59 04/26/24 20:40 1 GM Cefepime HCl (MAXipime 1 GM vial) 1 gm Q24H IVPB 04/22/24 15:30 04/25/24 18:45 DC 04/24/24 16:23 1 GM Cilostazol (PLETal 100MG TAB) 50 mg BID PO 04/22/24 21:00 05/22/24 20:59 04/26/24 20:41 50 MG Famotidine (Pepcid 20mg Tab) 20 mg DAILY PO 04/25/24 09:00 05/25/24 08:59 04/26/24 09:49 20 MG Insulin Human Regular (humuLIN R 100 UNIT/ML 3ML) INSULIN SLIDING SCAL... ACHS SQ 04/22/24 21:00 05/22/24 20:59 04/23/24 19:55 3 UNIT Leptospermum Honey (Medihoney) 1 APPLICATION LEFT GR... DAILY TP 04/27/24 09:00 05/27/24 08:59 Levetiracetam (kepPRA 500 MG TABLET) 500 mg BID PO 04/22/24 21:00 05/22/24 20:59 04/26/24 20:41 500 MG Losartan Potassium (CozAAR 50 mg TAB) 50 mg DAILY PO 04/23/24 09:00 05/23/24 08:59 04/26/24 09:49 50 MG Magnesium Sulfate 50 ml @ 0 mls/hr PROTOCOL PRN IV low mag level 04/24/24 10:00 05/24/24 09:59 04/25/24 06:47 25 MLS/HR Pharmacy Profile Note (Pharmacy Communication) 1 each ONCE MISC 04/22/24 14:00 04/22/24 14:44 DC Potassium Chloride 100 ml @ 100 mls/hr AD PRN IV POTASSIUM PROTOCOL 04/24/24 10:00 05/24/24 09:59 Potassium Chloride (K-Dur/Klor-Con 20meq) 20 meq AD PRN PO POTASSIUM PROTOCOL 04/24/24 10:00 05/24/24 09:59 04/24/24 13:20 20 MEQ Potassium Chloride (KCl 10% Elixir 20meq/15ml) 20 meq AD PRN PO POTASSIUM PROTOCOL 04/24/24 10:00 05/24/24 09:59 Rivaroxaban (Xarelto) 2.5 mg BID PO 04/22/24 21:00 04/23/24 15:31 DC 04/23/24 10:16 2.5 MG Rivaroxaban (Xarelto) 2.5 mg BID PO 04/23/24 21:00 05/22/24 20:59 04/26/24 20:41 2.5 MG Sodium Chloride 1,000 ml @ 100 mls/hr Q10H IV 04/25/24 12:00 04/25/24 15:59 DC 04/25/24 12:22 100 MLS/HR Sodium Chloride 1,000 ml @ 125 mls/hr Q8H IV 04/22/24 15:30 04/25/24 11:39 DC 04/25/24 04:04 125 MLS/HR Vancomycin HCl 100 ml @ 100 mls/hr BID@0600,1800 IV 04/26/24 06:00 05/06/24 05:59 04/27/24 05:51 100 MLS/HR Vancomycin HCl 250 ml @ 125 mls/hr ONCE IV 04/22/24 18:30 04/22/24 22:30 DC 04/22/24 18:42 125 MLS/HR Vancomycin HCl (Vancomycin 750mg) 750 mg Q24H IVPB 04/23/24 16:00 04/23/24 19:45 DC Vancomycin HCl (Vancomycin 750mg) 750 mg Q24H IVPB 04/23/24 20:00 04/25/24 20:51 DC 04/25/24 20:05 750 MG Vancomycin HCl (Vancomycin Protocol) 1 each AD IV 04/22/24 14:00 05/06/24 13:59 Vitamin B Complex (Vitamin B-12) 1,000 mcg DAILY PO 04/25/24 09:00 05/25/24 08:59 04/26/24 09:49 1,000 MCG DIAGNOSTICS / RADIOLOGY: [ ] ASSESSMENT: Left big toe cellulitis with associated paronychia POA Critical limb ischemia left lower extremity, POA via abdominal aortogram 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 Fam Angiography shows critical limb ischemia to left lower extremity, chronic total occlusion of proximal to distal left SFA. Fuel Efficient Aircraft Designer recommended Dr. Lara consult for possible fem-pop Dr. Lara consulted with the patient on 04/26/2024 and patient has agreed to move forward with cardiac intervention, planning for surgery In reference to anemia: Patient receiving IV iron, transfusing 1 unit PRBCs Monitor H&H, patient's H&H has been downtrending from 10.2 on admission to 7.1 today, transfusing 1 unit PRBCs Continue IV cefepime and vancomycin Dr. Chao for antimicrobial stewardship. Wound cultures positive for Enterobacter agglomerans and Klebsiella pneumoniae Follow Wound care recommendations by administrative coordinator IV fluids discontinued Trending CK levels, improving Continues Xarelto 2.5 mg b.i.d., Pletal 50 mg b.i.d. Blood pressures, adjusting medications accordingly continue with losartan 50 mg p.o. daily. Oral supplements folic acid1 mg vitamin B12 1000 mcg daily Continue glucometer checks before meals and at bedtime Continue SSI Continue hypoglycemic protocol Monitoring replace electrolytes Home medications reviewed and reconciled Continue seizure precautions Monitor a.m. labs PRN Treatment - Add when necessary meds for nausea, vomiting, pain, constipation, insomnia. DVT/GI prophylaxis- Continue Xarelto and famotidine at current doses. Full CODE STATUS Case management coordinating for LTAC placement This document was generated in part using voice recognition software, occasional wrong word or sound alike substitutions may have occurred due to the inherent limitations of voice recognition software. Read the chart carefully and recognize using context, where the substitutions have occurred. Although every effort was made to edit the content, nursing home admissions director and typing errors may occur DANIELLE ACUÑAP Apr 27, 2024 08:41
[2024-04-27] MEDS ORDERED: COMPOUND IV MISC 1 EACH IVSOLN MISC PRN (09:30)
[2024-04-27] MEDS: HONEY 1 APPL/ML TUBE TP SCH (09:43)
[2024-04-27 12:00] VITALS: BP 153/59; PULSE 79; RESP 18; TEMP 98.4
--- NOTE | 2024-04-27 12:39 | PN ---
SUBJECTIVE: A 73-year-old female with a history of diabetes mellitus and hypertension. She initially presented with nonhealing wound of the foot. The patient was found to have osteomyelitis of the foot. The patient is being seen by Podiatry. The patient also being set up for outpatient IV antibiotics. The patient was been seen by Cardiology. Did undergo lower extremity arteriogram. She is to follow up for possible lower extremity bypass surgery and the patient is being seen for all the above. REVIEW OF SYSTEMS: GENERAL: The patient is feeling improved. HEENT: No change in vision. No change in hearing. CARDIOVASCULAR: There is no current chest pain or palpitations. PULMONARY: There is no shortness of breath. GASTROINTESTINAL: The patient is tolerating a diet. MUSCULOSKELETAL: Complains of weakness. PHYSICAL EXAMINATION: VITAL SIGNS: Blood pressure 134/58, pulse in the 70s. GENERAL: Chronically ill female, elderly, lying in bed on the medical floor. HEENT: Head is atraumatic. Pupils equal, roving to light. Oropharynx is without exudate. Nares clear. NECK: There is no JVP. There is no thyromegaly, no mass. CARDIOVASCULAR: Regular. There is no S3, S4 gallop. LUNGS: Coarse with equal thoracic movement. ABDOMEN: Soft, nondistended, nontender. EXTREMITIES: Reveal no clubbing, no cyanosis. NEUROLOGIC: She is awake. She is alert. LABORATORY DATA: Hemoglobin 7.1, hematocrit 22. Sodium 140, potassium 3.5, BUN 20, creatinine 0.9. IMPRESSION: * Acute renal failure. * Osteomyelitis. * Vascular disease. * Anemia. PLAN: The patient is being set up for long-term IV antibiotics. The patient is to follow up as an outpatient for possible lower extremity bypass surgery. The patient with significant anemia, we will give an dose of IV iron. We will continue to follow closely. Once the patient is discharged, the patient can follow up in the Renal Clinic. TID: [id number] RECEIPT: [id number]
--- NOTE | 2024-04-27 14:11 | NUR ---
Plan of Care Per Dr. Lara, vascular procedure is not urgent and can be done electively. CM to finalize dcp and patient can come back as a scheduled readmission for a lower extremity vascular case if scheduled in the next 30 days.
--- NOTE | 2024-04-27 15:18 | NUR ---
REFERRAL TO [facility] FOLLOWED UP ON. D DAYANNA STATES CAN BE RECEIVED TODAY DR. HARRIS DOES NOT HAVE A DATE PLANNED FOR FEMP POP YET- CAN BE DCD TO [facility] TO COME BACK FOR PLANNED READMIT FOR FEMPOP
[2024-04-27 16:00] VITALS: BP 161/98; PULSE 81; RESP 18; TEMP 99.1
[2024-04-27 20:00] VITALS: BP 164/63; PULSE 83; RESP 20; TEMP 98.4; O2SAT 98
--- NOTE | 2024-04-27 20:12 | NUR ---
PLAN FOR DC IN AM TO [facility] TO COME BACK FOR FEM POP AT LATER DATE. CLEARED BY STEVEN HOOD AND KWAME FOR THIS PLAN, ADVISED DANIELLE OF SAME EXPECT DC IN AM
--- NOTE | 2024-04-27 20:30 | NUR ---
PICC LINE: PT FORGETFUL. RIGHT UPPER ARM WITH PICC LINE, PT CONTINUES TO TOUCH LINE AND DRESSING. PT HAS INSTRUCTED SEVERAL TIMES TO BE CAREFUL WITH PICC LINE AND NOT TO TOUCH DRESSING OR TAKE IT OFF. PT CONTINUES TO TRY TO TAKE OFF DRESSING AND KEEPS ASKING WHEN WE ARE GOING TO REMOVE THE LINE. PT INSTRUCTED PICC LINE NEEDS TO STAY IN PLACE FOR 2-3 WEEKS OF IV ANTIBIOTICS. DRESSING CHANGED ON 04/25 DRY/INTACT, COBAN DRESSING APPLIED OVER PICC LINE. S/R UP X 3, BED ALARM IN PLACE.
--- NOTE | 2024-04-27 21:23 | PN ---
SUBJECTIVE: A 73-year-old lady with a long history of peripheral vascular disease, single runoff from the popliteal to the foot. The patient has a complete occlusion of the SFA, which was unable to open percutaneously. The patient has significant symptoms including rest pain and has been referred for surgical revascularization. I had the opportunity to discuss with her the indications for surgery as well as the potential complications of the operation including but not limited to bleeding, infection and ultimately losing the extremity. She understands and wished to proceed with surgery. The patient could be done during this hospitalization stay or could be discharged and follow up as an outpatient. TID: [id number] RECEIPT: [id number]
[2024-04-27] MEDS: IRON sUCROse COMPLEX 300 MG in 0.9% NACL 250ML 250 ML IV ONE (21:59)
--- NOTE | 2024-04-27 22:45 | PN ---
INFECTIOUS DISEASE PROGRESS NOTE Date of Service: Apr 27, 2024 SUBJECTIVE: Patient was seen and examined at bedside in room 331. Patient is awake, alert and oriented x3. Patient with left great toe osteomyelitis. Patient will need IV antibiotics for 6 weeks. Will continue on vancomycin per pharmacy protocol and cefepime. Per report the fem-pop bypass will the down as outpatient due to pending necessary equipment for the procedure. Patient has been referred to [facility] and has been approved. No other issues reported by nursing. PHYSICAL EXAM EYES: Anicteric. Pupils equal and reactive. HENT: No oral thrush seen, moist Oral mucosa NECK: Supple, no JVD or thyromegaly. LUNGS: Good air entry. No rales, no rhonchi. CARDIOVASCULAR: S1, S2 regular. No murmur heard. ABDOMEN: Soft, non tender, bowel sounds present, no organomegaly CENTRAL NERVOUS SYSTEM: Awake, alert, oriented x 3. No focal deficits. SKIN: No rashes, no swelling. LYMPHATICS: No peripheral lymphadenopathy MUSCULOSKELETAL: No joint swelling, erythema or tenderness. EXTREMITIES: No cyanosis or clubbing. Left great toe ulcer. BACK: No deformity, no pressure ulcer. GENITOURINARY: No dysuria or hematuria Vital Sign (Last 12 Hours) 04/27/24 04/27/24 04/27/24 12:00 16:00 20:00 Temp 98.4 99.1 98.4 Pulse 79 81 83 Resp 18 18 20 B/P (MAP) 153/59 161/98 164/63 Pulse Ox 94 98 O2 Delivery Room Air Room Air Room Air Intake & Output (last 24hrs) 04/26/24 04/26/24 04/27/24 15:00 23:00 07:00 Intake Total 800 ml Output Total 700 ml 900 ml 700 ml Balance -700 ml -100 ml -700 ml LABS: Laboratory: Test 04/27/24 19:32 04/27/24 16:43 04/27/24 11:24 04/27/24 03:08 Range/Units Whole Blood Glucose 188 #H 70-110 MG/DL Vancomycin Level Trough 13.8 # 10.0-20.0 UG/ML Total Creatine Kinase 355 #H 21-232 U/L White Blood Count 6.1 4.8-10.8 K/uL Red Blood Count 2.47 L 4.00-5.50 MIL/uL Hemoglobin 7.1 L 12.0-16.0 g/dL Hematocrit 22.9 L 36-48 % Mean Corpuscular Volume 92.7 79-99 fL Mean Corpuscular Hemoglobin 28.7 27.0-33.0 pg Mean Corpuscular Hemoglobin Concent 31.0 L 32.0-36.0 g/dL Red Cell Distribution Width 14.7 11.0-15.5 % Platelet Count 132 130-400 K/uL Mean Platelet Volume 10.8 H 7.5-10.5 fL Immature Granulocyte % (Auto) 0.2 0-1 % Neutrophils (%) (Auto) 47.8 40.0-77.0 % Lymphocytes (%) (Auto) 28.9 21.0-51.0 % Monocytes (%) (Auto) 12.0 3.0-13.0 % Eosinophils (%) (Auto) 10.4 H 0.0-8.0 % Basophils (%) (Auto) 0.7 0.0-5.0 % Neutrophils # (Auto) 2.9 1.8-7.7 K/uL Lymphocytes # (Auto) 1.8 1.0-4.8 K/uL Monocytes # (Auto) 0.7 0.1-1.0 K/uL Eosinophils # (Auto) 0.63 0.00-0.70 K/uL Basophils # (Auto) 0.04 0.00-0.20 K/uL Absolute Immature Granulocyte (auto 0.01 0-1 K/uL Nucleated Red Blood Cells 0.0 0.0-0.19 % Red Blood Cell Morphology See comments Sodium Level 140 136-145 mmol/L Potassium Level 3.5 3.5-5.1 mmol/L Chloride Level 109 101-111 mmol/L Carbon Dioxide Level 25 21-32 mmol/L Blood Urea Nitrogen 20 H 7-18 mg/dL Creatinine 0.9 0.5-1.0 mg/dL Glomerular Filtration Rate Calc 67 >90 mL/min Random Glucose 100 70-105 mg/dL Total Calcium 8.4 L 8.5-10.1 mg/dL Magnesium Level 1.70 L 1.80-2.40 mg/dL Total Bilirubin 0.8 0.2-1.0 mg/dL Aspartate Amino Transf (AST/SGOT) 29 10-37 U/L Alanine Aminotransferase (ALT/SGPT) 26 12-78 U/L Alkaline Phosphatase 48 L 50-136 U/L Total Protein 5.8 L 6.0-8.3 g/dL Albumin 2.7 L 3.5-5.0 g/dL ASSESSMENT: Left great toe osteomyelitis. Left great toe ulcer infection with Enterobacter agglomerans and Klebsiella pneumoniae. Peripheral vascular disease, s/p Abdominal aortogram with bilateral lower extremity runoffs Rhabdomyolysis. Diabetes mellitus. Anemia. PLAN: Continue vancomycin per pharmacy protocol. Continue cefepime. Continue GI prophylaxis. Continue pain management. Patient has been started on Venofer. Continue monitoring glucose levels. Patient will need 6 weeks of IV antibiotics. Cardiovascular surgeon planning the fem-pop bypass as outpatient. Patient has been referred to [facility] and has been approved. This case was reviewed and discussed with my supervising physician and the above assessment and plan was formulated and agreed upon. ATTESTATION BY PHYSICIAN I have seen and examined the patient. I reviewed the documentation, medical decision making, and treatment plan as noted by the mid-level provider above. I agree with the findings and plan of care. CHRISTINA FORD MD, [facility]TA [facility] Apr 27, 2024 22:45
[2024-04-28] VITALS: BP 169/74; PULSE 82; RESP 20; TEMP 98.7
[2024-04-28 04:00] VITALS: BP 142/63; PULSE 88; RESP 20; TEMP 98
[2024-04-28 05:00] LABS: BASOPHILS # (AUTO) 0.04 K/uL (0.00-0.20); BASOPHILS % (AUTO) 0.7 % (0.0-5.0); EOSINOPHILS # (AUTO) 0.66 K/uL (0.00-0.70); EOSINOPHILS % (AUTO) 12.2 % (0.0-8.0); HEMATOCRIT 24.2 % (36-48); IMMATURE GRANULOCYTE ABSOLUTE 0.01 K/uL (0-1); LYMPHOCYTES # (AUTO) 1.4 K/uL (1.0-4.8); LYMPHOCYTES % (AUTO) 25.2 % (21.0-51.0); MEAN CORPUSCULAR HEMOGLOBIN 29.5 pg (27.0-33.0); MEAN CORPUSCULAR HGB CONC 32.6 g/dL (32.0-36.0); MEAN CORPUSCULAR VOLUME 90.3 fL (79-99); MONOCYTES # (AUTO) 0.6 K/uL (0.1-1.0); MONOCYTES % (AUTO) 10.9 % (3.0-13.0); NEUTROPHILS # (AUTO) 2.7 K/uL (1.8-7.7); NEUTROPHILS % (AUTO) 50.8 % (40.0-77.0); PLATELET COUNT (AUTO) 154 K/uL (130-400); RED BLOOD CELL COUNT(AUTO) 2.68 MIL/uL (4.00-5.50); RED CELL DISTRIBUTION WIDTH 14.8 % (11.0-15.5); WHITE BLOOD COUNT (AUTO) 5.4 K/uL (4.8-10.8)
[2024-04-28 05:20] LABS: ALBUMIN 2.8 g/dL (3.5-5.0); BILIRUBIN,TOTAL 0.7 mg/dL (0.2-1.0); CREATININE 0.7 mg/dL (0.5-1.0); MAGNESIUM 1.7 mg/dL (1.80-2.40); POTASSIUM 3.2 mmol/L (3.5-5.1); TOTAL PROTEIN, SERUM 6.2 g/dL (6.0-8.3)
--- NOTE | 2024-04-28 06:41 | PN ---
SUBJECTIVE: The patient is a very pleasant 73-year-old diabetic, Latin-Filipino female seen on date of service 04/28/2024. She is currently afebrile. White count 5.4, H and H 7.9 and 24.2, platelets 154, neutrophils 50.8. Potassium 3.2, magnesium 1.7, albumin 2.8. The patient is currently afebrile with a T-max of 98.8, pulse 82, respirations 20, blood pressure 169/74. The patient is currently receiving Medihoney dressings to her great toe, vancomycin and cefepime. The patient has had cultures that have shown back enterobacter agglomerans and Klebsiella pneumoniae. The patient was found to have complete occlusion of the SFA that was unable to be opened percutaneously. Plan is for femoral to popliteal bypass either on this admission or as an outpatient per the Cardiothoracic Surgery Service. The patient has osteomyelitis to her left great toe. She has been followed for a nonhealing ingrown toenail surgery since 11/2023 by her energy conservation engineer in [place]. REVIEW OF SYSTEMS: CONSTITUTIONAL: Pain to the left great toe. CARDIOVASCULAR: Peripheral vascular disease, monophasic waveforms distal to the common femoral on the left. The patient is being evaluated for [id number] bypass on the left by the Cardiothoracic Surgery Service. PULMONARY: No shortness of breath. ENDOCRINE: Diabetes. PSYCHIATRIC: Denied any depression. MUSCULOSKELETAL: Bunions and hammertoes. INTEGUMENT: She has an ulcer to the lateral border of the left hallux, fibrotic base. No granulation tissue. ASSESSMENT: Nonhealing ingrown toenail surgical site on the left, peripheral vascular disease with an osteomyelitis. The patient's wound cultures shown enterobacter and Klebsiella, receiving vancomycin and cefepime per cultures and sensitivities. The patient is being evaluated now by the Cardiothoracic Surgery Service for [id number] bypass on that left side. PLAN: We will continue with local wound care with Medihoney dressings to the left great toe. Continue with the IV vancomycin and the IV cefepime per the patient's cultures and sensitivities. Awaiting the [id number] bypass on the left. The patient is being followed for anemia, hypomagenesium, hypokalemia, low albumin. We will continue to follow the patient closely while in-house. TID: [id number] RECEIPT: [id number]
[2024-04-28 08:00] VITALS: BP 143/65; PULSE 77; RESP 16; TEMP 98.3; O2SAT 98
--- NOTE | 2024-04-28 09:48 | PN ---
SUBJECTIVE: A 73-year-old female with history of diabetes mellitus and hypertension, she initially presented with nonhealing wound to the foot. The patient with underlying vascular disease, status post lower extremity arteriogram. The patient did have rhabdomyolysis upon admission, which has greatly improved. The patient's creatinine continues to improve. She is being seen by case management in regards to long-term IV antibiotics and the patient is being seen as a followup visit for all of the above. REVIEW OF SYSTEMS: GENERAL: She is feeling improved since admission. HEENT: No change in vision. No change in hearing. CARDIOVASCULAR: There is no current chest pain or palpitations. PULMONARY: No shortness of breath. GASTROINTESTINAL: The patient is tolerating a diet. MUSCULOSKELETAL: Complains of weakness. PHYSICAL EXAMINATION: VITAL SIGNS: Blood pressure 143/65, pulse 70s, afebrile. GENERAL: Chronically ill female, elderly, lying in bed on medical floor. HEENT: Head is atraumatic. Pupils equal, roving to light. Oropharynx is without exudate. Nares clear. NECK: There is no JVP. There is no thyromegaly, no mass. CARDIOVASCULAR: Regular. There is no S3, S4 gallop. LUNGS: Coarse with equal thoracic medication. ABDOMEN: Soft, nondistended, nontender. EXTREMITIES: Reveal no clubbing, no cyanosis. NEUROLOGIC: She is awake. She is alert. LABORATORY DATA: Hemoglobin 7.9, hematocrit 24. Sodium 142, potassium 3.2, BUN 17, creatinine 0.7. IMPRESSION: * Acute renal failure. * Rhabdomyolysis, much improved. * Osteomyelitis. * Known vascular disease. * Anemia. PLAN: The patient's renal function is much improved, the patient's potassium has been aggressively repleted, the patient is being seen by case management in regards to long-term IV antibiotics. We will continue to follow closely. The patient will be given a dose of IV Venofer for the anemia and we will follow while in the hospital. TID: [id number] RECEIPT: [id number]
--- NOTE | 2024-04-28 10:45 | DS ---
Discharge Summary Hospital Course Summary: This is a 73-year-old female that was admitted on 04/22/2024 with chief complaints of lower extremity pain patient has underlying history of PVD. Patient is being followed by grid molder Dr. Solitario evaluation of ingrown toenail of the left foot. ER workup was done imaging arterial ultrasound which showed 50-80% stenosis involving the right common femoral artery. Monophasic flow was noted along most of the left lower extremity except for left common femoral and monophasic flow was noted in the right posterior tibial, anterior tibial and dorsalis pedis. [employer] Grinder Tender's has been consulted we will follow the recommendations. Patient is currently on Xarelto 2.5 mg. S/p abdominal aortography with bilateral runoffs with Dr Fam on 04/25/2024 04/28/2024 Patient is alert and orientedx3. Vital signs this morning are stable, afebrile, satting 98% on room air. H&H is 7.9/24.2, trending up. Potassium is 3.2, magnesium 1.7 otherwise CMP is stable. Electrolytes are being repleted per protocol. Continue cefepime and vancomycin via PICC line at ID's direction. Dr. Lara planning fem-pop, recommends patient discharged to [facility] for continued antibiotic treatment and to return in 2-3 weeks for fem-pop procedure. Patient agrees with plan. Patient has been accepted to LTAC this morning. Medically patient is stable and cleared for discharge and transfer to LTAC. Reagent Tender Helper(s): Cardiology Dr. Fam Cardiovascular Dr. Lara Infectious disease specialist Dr. Guerrero Chao Compo Caster Dr. Rodriguez Medical Intern Dr. Solitario Procedure(s): S/p common femoral artery sheath placement, abdominal aortogram with bilateral lower extremity runoffs, Mynx device for closure of arteriotomy site on right common femoral artery by Dr. 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 Fam Angiography shows critical limb ischemia to left lower extremity, chronic total occlusion of proximal to distal left SFA. Centerless Grinder Tender Dr. Fam recommended Dr. Lara consult for possible fem-pop Dr. Lara consulted with the patient on 04/26/2024 and patient has agreed to move forward with cardiac intervention, planning for surgery in 2-3 weeks after IV antibiotic therapy In reference to anemia: Patient receiving IV iron, transfusing 1 unit PRBCs Monitor H&H, patient's H&H has been downtrending from 10.2 on admission to 7.9today Nephrology's recommended to continue IV Venofer Continue IV cefepime and vancomycin Dr. Chao for antimicrobial stewardship. Wound cultures positive for Enterobacter agglomerans and Klebsiella pneumoniae Follow Wound care recommendations by grid molder IV fluids discontinued Trending CK levels, improving Continues Xarelto 2.5 mg b.i.d., Pletal 50 mg b.i.d. Blood pressures, adjusting medications accordingly continue with losartan 50 mg p.o. daily. Oral supplements folic acid1 mg vitamin B12 1000 mcg daily Continue glucometer checks before meals and at bedtime Continue SSI Continue hypoglycemic protocol Monitoring replace electrolytes Home medications reviewed and reconciled Continue seizure precautions Monitor a.m. labs PRN Treatment - Add when necessary meds for nausea, vomiting, pain, constipation, insomnia. DVT/GI prophylaxis- Continue Xarelto and famotidine at current doses. Full CODE STATUS Case management coordinating for LTAC placement, accepted. Patient was medically stable and cleared for discharge and transfer to LTAC This document was generated in part using voice recognition software, occasional wrong word or sound alike substitutions may have occurred due to the inherent limitations of voice recognition software. Read the chart carefully and recognize using context, where the substitutions have occurred. Although every effort was made to edit the content, manager of administration and typing errors may occur Discharge Instructions: Medically stable for discharge and transfer to LTAC This case was discussed with Dr. Pantoja and above plan was formulated Home Medications: Reported Medications Cilostazol (Cilostazol) 50 Mg Tablet, 50 MG PO BID, TAB 04/22/24 Metformin HCl (Metformin HCl) 500 Mg Tablet, 500 MG PO DAILY, TAB 04/22/24 Atorvastatin Calcium (Atorvastatin Calcium) 40 Mg Tablet, 40 MG PO HS, TAB 04/22/24 Losartan Potassium (Losartan Potassium) 50 Mg Tablet, 50 MG PO DAILY, TAB 04/22/24 Levetiracetam (Levetiracetam) 500 Mg Tablet, 500 MG PO BID, TAB 04/22/24 Rivaroxaban (Xarelto) 10 Mg Tablet, 2.5 MG PO BID, TAB 04/22/24 Time spent arranging discharge: 31-60 minutes DANIELLE ACUÑA O LOADING UNIT OPERATOR SEATING Apr 28, 2024 10:45
[2024-04-28] MEDS ORDERED: MAGNESIUM 2GM PREMIX 50ML 50 ML IV PRN (11:00)
[2024-04-28] MEDS ORDERED: PoTASSium chloRIDE 20MEQ ER 20 MEQ ERTAB PO PRN (11:00)
[2024-04-28] MEDS ORDERED: PoTASSium chloRIDE 20MEQ/100ML 100 ML IV PRN (11:00)
[2024-04-28] MEDS ORDERED: PoTASSium chl 10% ELIXIR 20MEQ 20 MEQ/15 ML UDCUP PO PRN (11:00)
[2024-04-28 12:00] VITALS: BP 159/70; PULSE 87; RESP 18; TEMP 98.1
[2024-04-28] MEDS: PoTASSium chl 10% ELIXIR 20MEQ 20 MEQ/15 ML UDCUP PO PRN (15:19)
[2024-04-28 16:00] VITALS: BP 157/70; PULSE 87; RESP 16; TEMP 98.7
--- NOTE | 2024-04-28 17:00 | NUR ---
REPORT CALLED TO JHOANA DAVIS RN PENDING FOR EMS TRANSPORT.
--- NOTE | 2024-04-28 18:15 | NUR ---
[facility] P[facility] FOR TRANSPORT TO [facility].
[2024-04-28] MEDS ORDERED: IRON sUCROse COMPLEX 300 MG in 0.9% NACL 250ML 250 ML IV ONE (21:00)
--- NOTE | 2024-04-28 21:02 | PN ---
A 73-year-old lady that has a single vessel runoff to the left lower extremity and has significant rest pain and nonhealing ulcers. She is referred for femoral-popliteal bypass. ____ be done electively, discharge and follow up as an outpatient. Scheduled for elective surgery. I discussed this with the hospitalist and we will continue to follow with you. If she stays in the hospital, proceed with surgery next week. If not, she ____ followup as an outpatient. TID: [id number] RECEIPT: [id number]
--- NOTE | 2024-04-28 21:10 | PN ---
INFECTIOUS DISEASE PROGRESS NOTE Date of Service: Apr 28, 2024 SUBJECTIVE: Patient was seen and examined at bedside in room 331. Patient is awake, alert and oriented x 3. Patient is afebrile, temperature is 98.2 and the WBC is 5.4. Patient's hemoglobin is stable at 7.9 after receiving Venofer IV. Will continue on vancomycin per pharmacy protocol and cefepime. Patient is being discharged to [facility] today. PHYSICAL EXAM EYES: Anicteric. Pupils equal and reactive. HENT: No oral thrush seen, moist Oral mucosa NECK: Supple, no JVD or thyromegaly. LUNGS: Good air entry. No rales, no rhonchi. CARDIOVASCULAR: S1, S2 regular. No murmur heard. ABDOMEN: Soft, non tender, bowel sounds present, no organomegaly CENTRAL NERVOUS SYSTEM: Awake, alert, oriented x 3. No focal deficits. SKIN: No rashes, no swelling. LYMPHATICS: No peripheral lymphadenopathy MUSCULOSKELETAL: No joint swelling, erythema or tenderness. EXTREMITIES: No cyanosis or clubbing. Left great toe ulcer. BACK: No deformity, no pressure ulcer. GENITOURINARY: No dysuria or hematuria Vital Sign (Last 12 Hours) 04/28/24 04/28/24 12:00 16:00 Temp 98.1 98.8 Pulse 87 87 Resp 18 16 B/P (MAP) 159/70 157/70 Pulse Ox 95 96 O2 Delivery Room Air Room Air Intake & Output (last 24hrs) 04/27/24 04/27/24 04/28/24 15:00 23:00 07:00 Intake Total 400 ml 500 ml 500.0 ml Output Total 500 ml 800 ml Balance -100 ml -300 ml 500.0 ml LABS: Laboratory: Test 04/28/24 14:53 04/28/24 04:20 04/27/24 16:43 04/27/24 11:24 Range/Units Whole Blood Glucose 153 H 70-110 MG/DL White Blood Count 5.4 4.8-10.8 K/uL Red Blood Count 2.68 L 4.00-5.50 MIL/uL Hemoglobin 7.9 L 12.0-16.0 g/dL Hematocrit 24.2 L 36-48 % Mean Corpuscular Volume 90.3 79-99 fL Mean Corpuscular Hemoglobin 29.5 27.0-33.0 pg Mean Corpuscular Hemoglobin Concent 32.6 32.0-36.0 g/dL Red Cell Distribution Width 14.8 11.0-15.5 % Platelet Count 154 130-400 K/uL Mean Platelet Volume 11.7 H 7.5-10.5 fL Immature Granulocyte % (Auto) 0.2 0-1 % Neutrophils (%) (Auto) 50.8 40.0-77.0 % Lymphocytes (%) (Auto) 25.2 21.0-51.0 % Monocytes (%) (Auto) 10.9 3.0-13.0 % Eosinophils (%) (Auto) 12.2 H 0.0-8.0 % Basophils (%) (Auto) 0.7 0.0-5.0 % Neutrophils # (Auto) 2.7 1.8-7.7 K/uL Lymphocytes # (Auto) 1.4 1.0-4.8 K/uL Monocytes # (Auto) 0.6 0.1-1.0 K/uL Eosinophils # (Auto) 0.66 0.00-0.70 K/uL Basophils # (Auto) 0.04 0.00-0.20 K/uL Absolute Immature Granulocyte (auto 0.01 0-1 K/uL Nucleated Red Blood Cells 0.0 0.0-0.19 % Sodium Level 142 136-145 mmol/L Potassium Level 3.2 L 3.5-5.1 mmol/L Chloride Level 109 101-111 mmol/L Carbon Dioxide Level 25 21-32 mmol/L Blood Urea Nitrogen 17 7-18 mg/dL Creatinine 0.7 0.5-1.0 mg/dL Glomerular Filtration Rate Calc 91 >90 mL/min Random Glucose 93 70-105 mg/dL Total Calcium 9.1 8.5-10.1 mg/dL Magnesium Level 1.70 L 1.80-2.40 mg/dL Total Bilirubin 0.7 0.2-1.0 mg/dL Aspartate Amino Transf (AST/SGOT) 28 10-37 U/L Alanine Aminotransferase (ALT/SGPT) 24 12-78 U/L Alkaline Phosphatase 53 50-136 U/L Total Protein 6.2 6.0-8.3 g/dL Albumin 2.8 L 3.5-5.0 g/dL Vancomycin Level Trough 13.8 # 10.0-20.0 UG/ML Total Creatine Kinase 355 #H 21-232 U/L Test 04/27/24 03:08 Range/Units Red Blood Cell Morphology See comments ASSESSMENT: Left great toe osteomyelitis. Left great toe ulcer infection with Enterobacter agglomerans and Klebsiella pneumoniae. Peripheral vascular disease, s/p Abdominal aortogram with bilateral lower extremity runoffs Rhabdomyolysis. Diabetes mellitus. Anemia. PLAN: Continue vancomycin per pharmacy protocol. Continue cefepime. Continue GI prophylaxis. Continue pain management. Continue monitoring glucose levels. Patient will need 6 weeks of IV antibiotics. Cardiovascular surgeon planning the fem-pop bypass as outpatient. Patient has been approved to [facility] and being discharged today. This case was reviewed and discussed with my supervising physician and the above assessment and plan was formulated and agreed upon. ATTESTATION BY PHYSICIAN I have seen and examined the patient. I reviewed the documentation, medical decision making, and treatment plan as noted by the mid-level provider above. I agree with the findings and plan of care. CHRISTINA FORD MD, MIRTA L LAND MANAGER Apr 28, 2024 21:10
== END 2024-04-28 18:40 | DRG 299 ==
LOC: EDH 13:07 → EDHIP 13:08 → 3AH 04-23 14:45
PROVIDERS: ADMIT Internal Medicine; ATTEND Internal Medicine
PROC: 02HV33Z Insertion of Infusion Device into Superior Vena Cava, Percutaneous Approach (ICD-10-PCS; 2024-04-22)
PROC: B4101ZZ Fluoroscopy of Abdominal Aorta using Low Osmolar Contrast (ICD-10-PCS; principal; 2024-04-25)
PROC: B41G1ZZ Fluoroscopy of Left Lower Extremity Arteries using Low Osmolar Contrast (ICD-10-PCS; 2024-04-25)
PROC: B41F1ZZ Fluoroscopy of Right Lower Extremity Arteries using Low Osmolar Contrast (ICD-10-PCS; 2024-04-25)
DX: E11.51 Type 2 diabetes mellitus with diabetic peripheral angiopathy without gangrene (principal); N17.0 Acute kidney failure with tubular necrosis; M86.172 Other acute osteomyelitis, left ankle and foot; M62.82 Rhabdomyolysis; L03.116 Cellulitis of left lower limb; E11.69 Type 2 diabetes mellitus with other specified complication; L03.032 Cellulitis of left toe; I10 Essential (primary) hypertension; E11.621 Type 2 diabetes mellitus with foot ulcer; D63.8 Anemia in other chronic diseases classified elsewhere; I70.222 Atherosclerosis of native arteries of extremities with rest pain, left leg; D50.9 Iron deficiency anemia, unspecified; B96.1 Klebsiella pneumoniae [K. pneumoniae] as the cause of diseases classified elsewhere; E11.622 Type 2 diabetes mellitus with other skin ulcer; E78.00 Pure hypercholesterolemia, unspecified; G40.909 Epilepsy, unspecified, not intractable, without status epilepticus; L60.0 Ingrowing nail; L97.529 Non-pressure chronic ulcer of other part of left foot with unspecified severity; Z79.899 Other long term (current) drug therapy; Z79.01 Long term (current) use of anticoagulants; Z83.3 Family history of diabetes mellitus; Z91.81 History of falling
CPT/HCPCS: 36247; 36415; 71045; 73521; 73630; 73718; 75625; 75716; 76770; 80053; 80202; 82550; 82570; 82948; 83540; 83550; 83735; 84145; 84300; 85025; 85610; 85730; 86850; 86900; 86901; 86923; 87070; 87076; 87086; 87186; 93005; 93925; 99156; 99157; C1769; C1894; G0378; J0692; J1644; J1756; J1815; J2250; J3010; J3370; J3475; J3490; J7050; Q9967; C1760